=== PATIENT | female | born 2000 | race Caucasian/White ===

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

== ENCOUNTER 2022-04-30 08:34 | Emergency (ER) | payer BC, MEDICAID, SELFPAY ==
--- NOTE | 2022-04-30 08:40 | ED_ITS ---
HPI - Abdominal Pain General: Chief Complaint: Abdominal Pain Stated Complaint: lower abd pain, fever Time Seen by Provider: 04/30/22 08:37 Source: patient Mode of arrival: ambulatory Limitations: no limitations History of Present Illness: Patient is a 22-year-old female presents to ED today with a complaint of lower abdominal pain over the past 3 days. Patient describes her pain as sharp and burning in nature. She is having a little bit of nausea but no episodes of emesis. She is having normal bowel movements. She does not complain of any urinary symptoms such as dysuria, frequency, urgency. She is not having any painful intercourse, vaginal discharge, or vaginal odor. She denies new sexual partners or concern for sexually transmitted infections. She has not been running fevers. Looking at patient's history she does have quite an extensive previous abdominal history. MD elicited complaint: abdominal pain Onset (ago): day(s) Pain Consistency: constant Location: RLQ, LLQ and Suprapubic Severity: moderate Quality: sharp and burning Radiation: none Migration to: no migration Exacerbating factors: nothing Relieving factors: nothing Associated Symptoms: Reports nausea; Denies change in bowel habits, chills, diarrhea, dysuria, fever(s), heartburn, hematuria, hematemesis, syncope and vomiting Related Data: Date of Last Menstrual Period: 08/25/21 Patient : No Review of Systems Const: Denies: fever(s), chills, body aches, fatigue or malaise Card: Denies: chest pain, palpitations, irregular heart rhythm, lightheadedness, syncope or dyspnea on exertion Resp: Denies: dyspnea, productive cough or pain on inspiration GI: Reports: abdominal pain and nausea; Denies: vomiting, hematemesis, heartburn, diarrhea or change in bowel habits : Denies: flank pain, difficulty voiding, dysuria, hematuria, vaginal odor, vaginal bleeding or vaginal discharge Musc: Denies: neck pain, back pain, extremity pain or joint pain Skin/Breast: Denies: rash Neuro: Denies: headache(s) or dizziness PFSH ED PFSH: Medical History Bleeding per rectum Gastric ulcer Gastritis Hematemesis No pertinent family history Social History Smoking and tobacco status: current every day smoker Alcohol intake: never Female Reproductive History: Date of last menstrual period: 08/25/21 Physical Exam Const: COMMON NORMALS: no acute distress, average body habitus, patient oriented x3, no limitations, healthy appearing, alert and well nourished G ENERAL APPEARANCE: cooperative ORIENTATION/CONSCIOUSNESS: Yes awake, Yes oriented to person, Yes oriented to place and Yes oriented to time HENMT: COMMON NORMALS: normocephalic and atraumatic HEAD & SCALP: normal to inspection, normocephalic and atraumatic Neck/C-Spine: COMMON NORMALS: full ROM, no lymphadenopathy, supple and no meningeal signs Chest: COMMONS NORMALS: normal inspection of the chest and normal palpation of entire chest wall Resp: COMMON NORMALS: normal respiratory effort and clear to auscultation bilaterally AUSCULTATION: clear to auscultation bilaterally Cardio: COMMON NORMALS: regular rate and regular rhythm RATE: regular rate RHYTHM: regular rhythm GI: COMMON NORMALS: Normal to inspection, nondistended, normoactive bowel sounds present, Soft to palpation, No hepatosplenomegaly present and no masses INSPECTION: Yes normal to inspection AUSCULTATION: Yes normoactive bowel sounds PALPATION: Yes Soft to palpation, Yes Tenderness to palpation present (GI) (throughout lower abdomen; no tenderness down into pelvis), No Guarding due to palpation present (GI), No Rigid due to palpation and Yes No hepatosplenomegaly present : COMMON NORMALS: Yes no CVA tenderness BLADDER/KIDNEY EXAM: Yes no CVA tenderness Back/Pelvis: COMMON NORMALS: no CVA tenderness and thoracic and lumbar spine normal to inspection Extremity: COMMON NORMALS: normal to inspection GENERAL: Yes normal exam except as noted Neuro: ANTONINO COMA SCALE: document GCS findings [place] coma scale eye opening: Spontaneous Antonino coma scale verbal response: Orientated [place] coma scale motor response: Obey commands [place] coma scale total score: 15 COMMON NORMALS: patient oriented x3, moves all extremities, no focal motor deficits, no sensory deficits noted and gait normal SENSORIUM/ORIENTATION: Yes alert, Yes oriented to person, Yes oriented to place and Yes oriented to time MENINGEAL SIGNS: Yes no meningeal signs Skin: COMMON NORMALS: no rashes or lesions noted GENERAL SKIN EXAM: no rashes or lesions noted Course ED course: Re-assessed patient to alert her on normal lab/UA findings. I explained to her how I have a low suspicion at this time for acute intra abdominal pathology and plan would most likely be for discharge. During my exam patient tells me that her pain seems to be coming back and states it is the worst it has ever been . Significant other in the room states she was up several times last night crying because of discomfort. She is now telling me she ran fevers last night (subjective/omitted during original history). Because of continued/severe pain we will obtain CT imaging at this time. Vital Signs: Vital signs: Vital Signs Temperature 98.3 F 04/30/22 08:52 Pulse Rate 71 04/30/22 08:47 Respiratory Rate 17 04/30/22 09:02 Blood Pressure 127/64 04/30/22 08:47 Pulse Oximetry 100 04/30/22 08:47 Oxygen Delivery Me thod 04/30/22 08:47 MDM - Abdominal Pain Medical Decision Making Patient's vital signs are normal. Lab work is benign. CT imaging ordered due to patient's continued concern and pain. CT scan essentially unremarkable. She has physiologic multifollicular ovaries. They did comment on retrosigmoid constipation. She has a chronic L4-L5 disc protrusion. She states this is not currently bothering her and she is not having any radicular pain currently. No other suggestion for etiology of her lower abdominal pain. As originally stated patient has a longstanding history of abdominal discomforts. She's had 10-12 visits through ED and through general surgery since Feb 2020 for abdominal pains. At this time patient is cleared from an ED standpoint with instructions to follow up with PCP. Spoke about possible GI referral for further evaluation. Will give her nausea meds and small amount of pain meds to use sparingly as they can cause worsening of the constipation that was found on CT today. Patient voiced understanding. Return to ED precautions given. Lab Data 04/30/22 09:02 04/30/22 09:02 Labs/Radiology: Radiology Impressions Abdomen/Pelvis CT 04/30/22 09:57 IMPRESSION: 1. Normal appendix in the RIGHT lower quadrant. No evidence of acute append icitis. 2. Normal physiologic multifollicular ovaries bilaterally. No free fluid in th e cul-de-sac or pelvis. 3. Rectosigmoid constipation. 4. Mild diffuse fatty infiltration liver. 5. Normal renal parenchymal enhancement. No hydronephrosis in either kidney. 6. Prominent central disc protrusion L4-L5 slightly progressed compared to August 26, 2021. This results in mild central canal stenosis with impingement traversing L5 nerve roots bilaterally. This can be followed up with lumbar spine MRI. 7. Mild disc bulging L3-L4 and L5-S1 similar to previous. Notified IRA Izaguirre at 04/30/2022 10:40 AM. 0 Laboratory Results WBC 5.5 10^3/uL (4.5-13.0) 04/30/22 09:02 RBC 5.13 10^6/uL (4.1-5.3) 04/30/22 09: Hgb 14.0 g/dL (11.5-15.3) 04/30/22 09: Hct 45.2 % (37.0-47.0) 04/30/22 09: MCV 88.1 fl (81-99) 04/30/22 09: MCH 27.3 pg (28.0-34.0) L 04/30/22 09: MCHC 31.0 g/dL (30.0-36.0) 04/30/22 09: RDW 13.1 % (12.1-15.1) 04/30/22 09:02 Plt Count 161 10^3/cmm (130-400) 04/30/22 09:02 MPV 12.4 fL (7.4-10.4) H 04/30/22 09:02 Neut % (Auto) 46.5 % 04/30/22 09:02 Lymph % (Auto) 41.2 % 04/30/22 09:02 [place] % (Auto) 7.7 % 04/30/22 09:02 Eos % (Auto) 4.0 % 04/30/22 09:02 Baso % (Auto) 0.4 % 04/30/22 09:02 Neut # (Auto) 2.56 10^3/uL (1.8-8.0) 04/30/22 09:02 Lymph # (Auto) 2.3 10^3/uL (1.5-6.5) 04/30/22 09:02 [place] # (Auto) 0.4 10^3/uL (0.2-0.9) 04/30/22 09:02 Eos # (Auto) 0.2 10^3/uL (0.0-0.8) 04/30/22 09:02 Baso # (Auto) 0.0 10^3/uL (0.0-0.1) 04/30/22 09:02 Nucleated RBC % (auto) 0 % 04/30/22 09:02 Nucleated RBCs # 0.0 /100WBC 04/30/22 09:02 Sodium 139 mmol/L (136-145) 04/30/22 09:02 Potassium 4.1 mmol/L (3.5-5.1) 04/30/22 09:02 Chloride 104 mmol/L (98-107) 04/30/22 09:02 Carbon Dioxide 27 mmol/L (22-29) 04/30/22 09:02 Anion Gap 12.1 (5-19) 04/30/22 09:02 BUN 10 mg/dL (6-20) 04/30/22 09:02 Creatinine 0.6 mg/dL (0.5-0.9) 04/30/22 09:02 GFR Calculation 127.5 mL/min (90-130) 04/30/22 09:02 Glucose 93 mg/dL (65-115) 04/30/22 09:02 Calculated Osmolality 287 mOsm/kg (285-295) 04/30/22 09:02 Calcium 9.0 mg/dL (8.5-10.5) 04/30/22 09:02 Total Bilirubin 0.6 mg/dL (0.15-1.2) 04/30/22 09:02 AST 22 U/L (0-32) 04/30/22 09:02 ALT 24 U/L (0-33) 04/30/22 09:02 Alkaline Phosphatase 63 U/L (35-105) 04/30/22 09:02 Total Protein 7.2 g/dL (6.6-8.7) 04/30/22 09:02 Albumin 4.3 g/dL (3.5-5.2) 04/30/22 09:02 Globulin 2.9 g/dL (1.3-4.6) 04/30/22 09:02 HCG, Qual Negative (Negative) 04/30/22 09:02 Urine Color Yellow (Yellow) 01/26/23 08:56 Urine Appearance Clear (CLEAR) 04/30/22 08:56 Urine pH 7 (5-7) 04/30/22 08:56 Ur Specific [place] 1.015 (1.005-1.030) 04/30/22 08:56 Urine Protein Neg (Negative) 04/30/22 08:56 Urine Glucose (UA) Norm (Normal) 04/30/22 08:56 Urine Ketones Negative (Negative) 04/30/22 08:56 Urine Blood Neg (Negative) 04/30/22 08:56 Urine Nitrate Negative (Negative) 04/30/22 08:56 Urine Bilirubin Neg (Negative) 04/30/22 08:56 Urine Urobilinogen 1 mg/dL (Negative) H 04/30/22 08:56 Ur Leukocyte Esterase Trace (Negative) H 04/30/22 08:56 Urine RBC 0-4 /hpf (0-2) H 04/30/22 08:56 Urine WBC 0-4 /hpf (0-5) H 04/30/22 08:56 Ur Squamous Epith Cells 25-40 /hpf (0-5) H 04/30/22 08:56 Amorphous Sediment Not Reportable 04/30/22 08:56 Urine Bacteria 1+ /hpf (NONE) H 04/30/22 08:56 Discharge Plan Discharge Patient Disposition: Home Clinical Impression: Abdominal pain Condition: Stable Prescriptions: New tramadol 50 mg tablet 50 mg PO Q6H PRN (Reason: pain) Qty: 10 0RF Continued ondansetron 4 mg tablet,disintegrating 4 mg PO Q8H PRN (Reason: nausea and vomiting) Qty: 10 0RF Discontinued hydrocodone-acetaminophen 5-325 mg tablet 1 tab PO Q6H PRN (Reason: pain) Qty: 8 0RF No Action fluticasone propionate 50 mcg/actuation spray,suspension 2 spray intranasal DAILY Qty: 16 0RF Rx Instructions: administer into each nostril levocetirizine [Allergy Relief (levocetirizin)] 5 mg tablet 5 mg PO DAILY Qty: 30 1RF Xulane 150-35 mcg/24 hr Patch Weekly 1 patch TRANSDERMAL DIRECTED methocarbamol 750 mg tablet 750 mg PO Q6H PRN (Reason: spasms) Qty: 20 0RF Naprosyn 500 mg tablet 500 mg PO BID PRN (Reason: pain) Qty: 20 0RF Celebrex 100 mg capsule 100 mg PO BID PRN (Reason: pain) Qty: 20 0RF cyclobenzaprine 7.5 mg tablet 7.5 mg PO BID PRN (Reason: muscle spasm) Qty: 15 0RF Discharge Orders: Discharge ED (Routine); Ordered 04/30/22 Ordered By: Magalys Troy Referrals: Ramona Booker FNP [Primary Care Provider] - Patient Instructions: Abdominal Pain (ED), Opioid Safety, Pain Management Coding Level of Care Code ED Drill Runner for Chg Fwd Exam Comprehensive
[2022-04-30 08:42] VITALS: BMI 20.9
[2022-04-30 08:47] VITALS: BP 127/64; PULSE 71; RESP 16; O2SAT 100
[2022-04-30 08:52] VITALS: TEMP 36.8
[2022-04-30 09:02] VITALS: RESP 17
[2022-04-30] MEDS: morphine 4 mg/mL SDV 1 mL IVP (09:02)
[2022-04-30] MEDS: ondansetron 2 mg/ML SDV 2 mL 4 MG IVP (09:02)
[2022-04-30 09:04] LABS: Add Urine Microscopic? YES; Bilirubin Urine Neg (Negative); Blood Urine Neg (Negative); Glucose Urine UA Norm (Normal); Ketones Urine Negative (Negative); Leukocyte Esterase Urine Trace (Negative); Nitrate Urine Negative (Negative); Protein Urine Neg (Negative); Specific Gravity, Urine 1.015 (1.005-1.030); Urine Appearance Clear (CLEAR); Urine Color Yellow (Yellow); Urobilinogen Urine 1 mg/dL (Negative); pH Urine 7 (5-7)
[2022-04-30 09:18] LABS: Basophils % 0.4 %; Eosinophils # 0.2 10^3/uL (0.0-0.8); Hematocrit 45.2 % (37.0-47.0); Lymphocytes # 2.3 10^3/uL (1.5-6.5); Lymphocytes % 41.2 %; Mean Corpuscular Hemoglobin 27.3 pg (28.0-34.0); Mean Corpuscular Volume 88.1 fl (81-99); Mean Platelet Volume 12.4 fL (7.4-10.4); Monocytes # 0.4 10^3/uL (0.2-0.9); Monocytes % 7.7 %; Neutrophils # 2.56 10^3/uL (1.8-8.0); Neutrophils % 46.5 %; Nucleated Red Blood Cells % 0 %; Platelet Count 161 10^3/cmm (130-400); Red Blood Count 5.13 10^6/uL (4.1-5.3); Red Cell Distribution Width 13.1 % (12.1-15.1); White Blood Count 5.5 10^3/uL (4.5-13.0)
[2022-04-30 09:20] LABS: Bacteria Urine 1+ /hpf; RBC Urine 0-4 /hpf (0-2); Squamous Epithelial Cell Urine 25-40 /hpf (0-5); WBC Urine 0-4 /hpf (0-5)
[2022-04-30 09:31] LABS: Alanine Aminotransferase 24 U/L (0-33); Albumin Level 4.3 g/dL (3.5-5.2); Alkaline Phosphatase 63 U/L (35-105); Anion Gap 12.1 (5-19); Aspartate Amino Transferase 22 U/L (0-32); Blood Urea Nitrogen 10 mg/dL (6-20); Carbon Dioxide 27 mmol/L (22-29); Chloride 104 mmol/L (98-107); Globulin 2.9 g/dL (1.3-4.6); Glomerular Filtration Rate 127.5 mL/min (90-130); Glucose 93 mg/dL (65-115); Osmolality Calculated 287 mOsm/kg (285-295); Potassium 4.1 mmol/L (3.5-5.1); Sodium 139 mmol/L (136-145); Total Bilirubin 0.6 mg/dL (0.15-1.2); Total Protein 7.2 g/dL (6.6-8.7)
[2022-04-30 09:36] LABS: HCG, Serum Qual Negative (Negative)
--- NOTE | 2022-04-30 09:57 | CT_ITS ---
WS: [id number] CT ABDOMEN PELVIS TECHNIQUE: Contrast-enhanced CT of the abdomen and pelvis with coronal and sagittal reformatted image s. CLINICAL INFORMATION: lower abdominal pain, sub fevers COMPARISON: CT August 26, 2021 DLP: 360.[address] scans at [facility] use at least one of these dose optimization techniques: automated e xposure control; mA and/or kV adjustment per patient size (includes targeted exams where dose is matc hed to clinical indication); or iterative reconstruction. FINDINGS: Mild diffuse fatty infiltration liver. Normal portal vein and splenic vein. Normal spleen. Adrenal gl ands are normal. Normal renal parenchymal enhancement. No hydronephrosis. Lung bases are well aerated . Normal gallbladder. Normal portal vein and splenic vein. Normal GE junction. Adrenal glands are nor mal. No hydronephrosis in either kidney. Normal renal parenchymal enhancement. Normal caliber abdomin al aorta. Multifollicular ovaries bilaterally. Tortuous sigmoid colon. Rectosigmoid constipation with distentio n of the rectum. Normal appendix in the RIGHT lower quadrant. Disc bulging L4-L5 with a small central disc protrusion. This is similar in appearance to August 26, 2021 and slightly progressed. This results in mild central canal stenosis with impingement on traversing L5 nerve roots bilaterally. This can b e followed up with MRI on an elective basis. Tiny fat-containing umbilical hernia. CT/CT abdomen pelvis w con* [id number] IMPRESSION: 1. Normal appendix in the RIGHT lower quadrant. No evidence of acute appendici tis. 2. Normal physiologic multifollicular ovaries bilaterally. No free fluid in t he cul-de-sac or pelvis. 3. Rectosigmoid constipation. 4. Mild diffuse fatty infiltration liver. 5. Normal renal parenchymal enhancement. No hydronephrosis in either kidney. 6. Prominent central disc protrusion L4-L5 slightly progressed compared to August 26, 2021. This results in mild central canal stenosis with impingement jules ing L5 nerve roots bilaterally. This can be followed up with lumbar spine MRI. 7. Mild disc bulging L3-L4 and L5-S1 similar to previous. Notified IRA Izaguirre at 04/30/2022 10:40 AM. 0
[2022-04-30] MEDS: iohexol 350 mg/mL 500 mL Btl (per mL) IV (10:15)
[2022-04-30] MEDS: ketorolac 30 mg/mL INJ IVP (10:18)
[2022-04-30] MEDS: metoclopramide 5 mg/mL SDV 2 mL 10 MG IVP (10:29)
[2022-04-30 11:06] VITALS: PULSE 73; RESP 16; O2SAT 98
== END 2022-04-30 11:07 | disposition home or self-care (01) ==
PROVIDERS: Emergency Provider Physician Assistant; PCP Registered Nurse
DX: R10.30 Lower abdominal pain, unspecified (principal); F17.210 Nicotine dependence, cigarettes, uncomplicated
CPT/HCPCS: 74177; 80053; 81001; 84703; 85025; 96374; 96375; 99285; J1885; J2270; J2405; J2765; Q9967

== ENCOUNTER → 2022-06-15 10:23 | Outpatient (BNVA) | payer BC, MEDICAID, SELFPAY | PROVIDERS: PCP Registered Nurse; Visit Provider Nurse Practitioner Women's Health | DX: N92.6 Irregular menstruation, unspecified (principal) | CPT/HCPCS: 76830 ==

== ENCOUNTER 2022-06-25 08:47 | Emergency (ER) | payer BC, MEDICAID, SELFPAY ==
[2022-06-25 09:06] VITALS: BP 118/66; PULSE 67; RESP 16; O2SAT 98; BMI 22.2
--- NOTE | 2022-06-25 09:23 | CTR_ITS ---
PROCEDURE INFORMATION: Exam: CT Head Without Contrast Exam date and time: 06/25/2022 10:28 AM Age: 22 years old Clinical indication: Injury or trauma; Fall; Blunt trauma (contusions or hematomas); Additional info: Fall from standing, hit back of head, +loc. Syncope, fell hitting head on floor x 1 day ago. PT states she was unconsious for 3 minutes. PT C/O weakness, light sensitivity today, and headache TECHNIQUE: Imaging protocol: Computed tomography of the head without contrast. Radiation optimization: All CT scans at this facility use at least one of these dose optimization techniques: automated exposure control; mA and/or kV adjustment per patient size (includes targeted exams where dose is matched to clinical indication); or iterative reconstruction. REPORTING DATA: Count of CT and Cardiac NM exams in prior 12 months: This patient has received 3 known CTs and 0 known cardiac nuclear medicine studies in the 12 months prior to the current study. COMPARISON: CT head wo con* [id number] 05/31/2020 1:44 AM RADIATION DOSE METRICS: Total DLP (mGy-cm): 145.3 FINDINGS: Brain: The brain is unremarkable. There is no mass effect or significant white matter disease. There is no acute intracranial hemorrhage. Cerebral ventricles: There is no significant ventricular dilation. The basal cisterns are unremarkable. Paranasal sinuses: The paranasal sinuses are clear. Mastoid air cells: The mastoid air cells are clear. Bones/joints: The calvarium is intact. Soft tissues: The visible extracranial soft tissues are unremarkable. CT/CT head wo con* [id number] IMPRESSION: No acute intracranial abnormality.
--- NOTE | 2022-06-25 09:23 | CTR_ITS ---
PROCEDURE INFORMATION: Exam: CT Cervical Spine Without Contrast Exam date and time: 06/25/2022 10:28 AM Age: 22 years old Clinical indication: Injury or trauma; Fall; Blunt trauma; Additional info: Neck pain after fall and hitting head, +loc TECHNIQUE: Imaging protocol: Computed tomography of the cervical spine without contrast. Radiation optimization: All CT scans at this facility use at least one of these dose optimization techniques: automated exposure control; mA and/or kV adjustment per patient size (includes targeted exams where dose is matched to clinical indication); or iterative reconstruction. REPORTING DATA: Count of CT and Cardiac NM exams in prior 12 months: This patient has received 3 known CTs and 0 known cardiac nuclear medicine studies in the 12 months prior to the current study. COMPARISON: CT head wo con* [id number] 05/31/2020 1:44 AM RADIATION DOSE METRICS: Total DLP (mGy-cm): 145.3 FINDINGS: Bones/joints: Spinal alignment is normal. Vertebral body height is maintained. No acute fracture. No spinal canal stenosis. Lungs: Lung apices are clear. Soft tissues: Soft tissues in the neck and thoracic inlet are unremarkable. CT/CT cervical spin wo con* [id number] IMPRESSION: No acute fracture.
--- NOTE | 2022-06-25 09:27 | ED_ITS ---
HPI - Head Injury General: Chief complaint: Head Injury Stated complaint: AMS/concussion Time Seen by Provider: 06/25/22 09:06 History of Present Illness: Patient is a 22-year-old female comes to the ED with a head injury. Head injury occurred yesterday. She fell and hit back of her head on the ground yesterday. endorses positive loss of consciousness. Patient says she was out for approximately 2 to 3 minutes. She went to [facility] yesterday and was diagnosed with a concussion. She is currently having symptoms of brain fog, dizziness, confusion, nausea and a headache located in the back of head. Associated symptoms: Reports confusion and nausea; Deny neck pain or vomiting Review of Systems Const: Denies: fever(s), chills or fatigue Eyes: Denies: change in vision or eye discomfort ENMT: Denies: throat pain, odynophagia, nasal discharge or nasal congestion Card: Denies: chest pain, palpitations, edema, swelling of feet/ankles, dyspnea on exertion or orthopnea Resp: Denies: dyspnea, productive cough or non-productive cough GI: Reports: nausea; Denies: abdominal pain, vomiting, diarrhea, constipation or hematochezia : Denies: flank pain, dysuria or hematuria Musc: Denies: neck pain, back pain or extremity swelling Skin/Breast: Denies: rash or new lesions Neuro: Reports: headache(s), dizziness, confusion and other (Brain fog); Denies: numbness in extremities or weakness in extremities PFS ED PFSH: Medical History Bleeding per rectum Gastric ulcer Gastritis Hematemesis No pertinent family history Family History Grandmother Breast cancer Grandmother Breast cancer Grandmother Hypertension maternal and paternal grandparents Denies family history of Diabetes Stroke Social History Smoking and tobacco status: current every day smoker Alcohol intake: never Physical Exam Const: COMMON NORMALS: no acute distress, patient oriented x3 and alert HENMT: COMMON NORMALS: normocephalic HEAD & SCALP: normocephalic MOUTH: Normal oral and palatal mucosa present THROAT: posterior oropharynx normal and uvula midline Eye: COMMON NORMALS: Equal, round and reactive pupils present and EOMs intact bilaterally GENERAL EYE: appearance normal, both eyes and all related structures PUPIL: Yes Equal, round and reactive pupils present Neck/C-Spine: COMMON NORMALS: supple GENERAL: Yes normal visual inspection CERVICAL SPINE: Yes cervical ROM normal, Yes Cervical spine tenderness C5 and C6 and Yes Paracervical muscle tenderness bilateral Lymph: LYMPHATIC: no lymphadenopathy noted Resp: COMMON NORMALS: normal respiratory effort, No retractions, No use of accessory muscles and clear to auscultation bilaterally AUSCULTATION: clear to auscultation bilaterally Cardio: COMMON NORMALS: regular rate, regular rhythm, S1 normal heart sound present, S2 normal heart sound present, No gallops present (Cardio), No clicks present (Cardio), No murmurs present (Cardio) and Peripheral pulses 2+ throughout RATE: regular rate RHYTHM: regular rhythm HEART SOUNDS: S1 normal heart sound present and S2 normal heart sound present PERIPHERAL PULSES: Peripheral pulses 2+ throughout GI: COMMON NORMALS: Normal to inspection, nondistended, normoactive bowel sounds present, Soft to palpation, non-tender and no masses PALPATION: Yes Soft to palpation : COMMON NORMALS: Yes no CVA tenderness BLADDER/KIDNEY EXAM: Yes no CVA tenderness Back/Pelvis: COMMON NORMALS: no CVA tenderness Extremity: GENERAL: Yes normal exam except as noted Neuro: COMMON NORMALS: patient oriented x3, CN's II-XII intact bilaterally, moves all extremities, no focal motor deficits and no sensory deficits noted SENSORIUM/ORIENTATION: Yes alert SENSORY EXAM: Yes extremities (intact) MO TOR EXAM: 5/5 motor strength present throughout Skin: COMMON NORMALS: no rashes or lesions noted GENERAL SKIN EXAM: no rashes or lesions noted and dry skin Course Vital Signs: Vital signs: Vital Signs Pulse Rate 60 06/25/22 11:11 Respiratory Rate 16 06/25/22 09:06 Blood Pressure 102/54 06/25/22 11:11 Pulse Oximetry 98 06/25/22 11:11 Oxygen Delivery Md thod 06/25/22 10:01 [facility] - Head Injury Medcial Decision Making Patient is a 22-year-old female comes to the ED with a head injury. Head injury occurred yesterday. She fell and hit back of her head on the ground yesterday. endorses positive loss of consciousness. Patient says she was out for approximately 2 to 3 minutes. She went to [facility] yesterday and was diagnosed with a concussion. She is currently having symptoms of brain fog, dizziness, confusion, nausea and a headache located in the back of head. Vitals are stable and patient appears nontoxic and in no acute distress. Neuro exam shows no deficits. Head CT and cervical spine CT showed no acute findings. Patient was diagnosed with a concussion and was stable for discharge home. She was sent home with a prescription for Zofran to help with the nausea. Told to follow-up with her PCP in the next week for reevaluation and to monitor concussion symptoms. Patient understood and agreed with plan. Lab Data Radiology Impressions Cervical Spine CT 06/25/22 09:23 IMPRESSION: No acute fracture. Head CT 06/25/22 09:23 IMPRESSION: No acute intracranial abnormality. Discharge Plan Discharge Patient Disposition: Home Clinical Impression: Concussion Qualifiers: Encounter type: initial encounter Loss of consciousness presence/duration: with LOC of 30 min or less Qualified Code(s): S06.0X1A - Concussion with loss of consciousness of 30 minutes or less, initial encounter Condition: Stable Prescriptions: New ondansetron 4 mg tablet,disintegrating 4 mg PO Q8H PRN (Reason: nausea and vomiting) Qty: 15 0RF Discharge Orders: Discharge ED (Routine); Ordered 06/25/22 Ordered By: Basil Fields Referrals: Ramona Booker FNP [Primary Care Provider] - Discharge Diet: Regular Discharge Activity: Increase activity as tolerated Patient Instructions: Concussion (ED) Activity Restrictions/Additional Instructions: Follow-up with primary care physician within the next 5 to 7 days for reevaluation and to monitor concussion symptoms. Take medications as prescribed. You can take [id number] Tylenol or ibuprofen per bottle instruction for headaches. Return to the ER or your medical provider if condition worsens. Please read and understand discharge instructions. Thank you for choosing [facility] for your healthcare needs today. Please realize this is an emergency room and that we are providing you with a medical screening exam and this may not be complete and all inclusive of all the testing and or work up that you may need to determine your ailment or severity of your illness. It is very important that you follow up as instructed or that you return to the Emergency Department should you have concerns or if your condition changes or worsens in any way. Coding Level of Care Code ED Dumpling Machine Operator for Kirsten Melendez
[2022-06-25] MEDS: ondansetron 4 MG Tablet PO (09:34)
--- NOTE | 2022-06-25 09:34 | PC.PHAR ---
pt states takes no rx or otc meds
[2022-06-25 09:38] VITALS: BP 118/66; PULSE 64; O2SAT 95
[2022-06-25] MEDS: ketorolac 60 mg/2 mL INJ IM (09:55)
[2022-06-25 10:01] VITALS: BP 106/68; PULSE 62; O2SAT 98
[2022-06-25 11:11] VITALS: BP 102/54; PULSE 60; O2SAT 98
== END 2022-06-25 11:10 | disposition home or self-care (01) ==
PROVIDERS: Emergency Provider Physician Assistant; PCP Registered Nurse
DX: S06.0X1A Concussion with loss of consciousness of 30 minutes or less, initial encounter (principal); F17.210 Nicotine dependence, cigarettes, uncomplicated; W19.XXXA Unspecified fall, initial encounter
CPT/HCPCS: 70450; 72125; 96372; 99284; J1885; Q0162

== ENCOUNTER 2022-08-25 06:20 | Emergency (ER) | payer BC, MEDICAID, SELFPAY ==
--- NOTE | 2022-08-25 06:27 | ECG_ITS ---
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 Measurements Intervals [place] Rate: 74 P: 44 MA: 143 QRS: 87 QRSD: 86 T: 72 QT: 365 QTc: 407 Interpretive Statements SINUS RHYTHM WITH SINUS ARRHYTHMIA Compared to ECG 04/01/2021 02:02:31 No significant changes Electronically Signed On 08-26-2022 1:13:52 CDT by April Lozada M.D. [id number]
[2022-08-25 06:36] VITALS: BMI 19.5
[2022-08-25 06:40] VITALS: BP 115/73; PULSE 65; RESP 17; TEMP 36.6; O2SAT 99
[2022-08-25] MEDS: sodium chloride 0.9% 1,000 ML 999 ML IV (06:43)
--- NOTE | 2022-08-25 06:48 | W.ED.ABDPA2 ---
HPI - Abdominal Pain General: Chief Complaint: Abdominal Pain Stated Complaint: Lower Abd pain, Passing blood Time Seen by Provider: 08/25/22 06:26 Source: patient Mode of arrival: ambulatory History of Present Illness: 22-year-old female presents emergency room with complaint of pelvic discomfort. Patient states she felt a popping sensation in the left pelvic region and immediately had vaginal bleeding and ceased shortly after that began she just finished her menstrual period now. He has a history of chronic abdominal pain and ovarian cyst. She previously was on contraception for it but she felt that actually made it worse. She also reports a history of polycystic ovarian syndrome. She denies any fever sweats or chills. MD elicited complaint: abdominal pain Onset (ago): minute(s) Pain Consistency: constant Location: Diffuse Quality: cramping Exacerbating factors: nothing Relieving factors: nothing Associated Symptoms: Reports nausea; Denies anorexia, belching, bloating, change in bowel habits, change in stool character, chills, coffee ground emesis, constipation, GI cramping, diarrhea, dyspepsia, dysuria, excessive flatus, fever(s), heartburn, hematochezia, hematuria, hematemesis, fecal incontinence, loose stools, melena, poor appetite, syncope and vomiting Related Data: Date of Last Menstrual Period: 08/12/22 Review of Systems Const: Denies: fever(s) or chills ENMT: Denies: throat pain, ear or mastoid pain, nasal discharge or nasal congestion Card: Denies: chest pain, palpitations or syncope Resp: Denies: dyspnea, productive cough or non-productive cough GI: Reports: abdominal pain and nausea; Denies: vomiting, hematemesis, coffee ground emesis, heartburn, diarrhea, constipation, bloating, GI cramping, belching, excessive flatus, fecal incontinence, change in bowel habits, change in stool character, hematochezia or melena : Denies: dysuria, urinary frequency, urinary urgency or hematuria Skin/Breast: Denies: rash or pruritus PFSH ED PFSH: Medical History Bleeding per rectum Gastric ulcer Gastritis Hematemesis No pertinent family history Family History Grandmother Breast cancer Grandmother Breast cancer Grandmother Hypertension maternal and paternal grandparents Denies family history of Diabetes Stroke Social History Smoking and tobacco status: current every day smoker Alcohol intake: never Substance/Drug Use: never Female Reproductive History: Date of last menstrual period: 08/12/22 Physical Exam Const: GENERAL APPEARANCE: cooperative and comfortable ORIENTATION/CONSCIOUSNESS: Yes awake, Yes oriented to person, Yes oriented to place and Yes oriented to time HENMT: COMMON NORMALS: normocephalic, atraumatic and hearing grossly normal bilaterally HEAD & SCALP: normocephalic and atraumatic Resp: COMMON NORMALS: normal respiratory effort, No retractions, No use of accessory muscles and clear to auscultation bilaterally AUSCULTATION: clear to auscultation bilaterally Cardio: COMMON NORMALS: regular rate, regular rhythm and No murmurs present (Cardio) RATE: regular rate RHYTHM: regular rhythm GI: PALPATION: Yes Tenderness to palpation present (GI) (diffuse) : COMMON NORMALS: Yes no CVA tenderness BLADDER/KIDNEY EXAM: Yes no CVA tenderness Back/Pelvis: COMMON NORMALS: no CVA tenderness Extremity: COMMON NORMALS: normal to inspection, capillary refill normal, no clubbing, cyanosis or edema, no calf tenderness and no pedal edema Neuro: SENSORIUM/ORIENTATION: Yes oriented to person, Yes oriented to place and Yes oriented to time Skin: COMMON NORMALS: no rashes or lesions noted GENERAL SKIN EXAM: no rashes or lesions noted Course Vital Signs: Vital signs: Vital Signs Temperature 97.9 F 08/25/22 06:40 Pulse Rate 62 08/25/22 07:23 Respiratory Rate 18 08/25/22 07:23 Blood Pressure 94/72 08/25/22 07:23 Pulse Oximetry 100 08/25/22 07:23 Oxygen Delivery Me thod Room Air 08/25/22 07:23 MDM - Abdominal Pain Medical Decision Making Labs and imaging reviewed ultrasound negative symptoms have resolved. Suspect may be related to her either uterine cramping or her polycystic ovarian disease there is no evidence of free fluid in the pelvis. She had multiple episodes of this in the past discharge home with diclofenac to use as needed follow-up with her primary care doctor or welding instructor within the next 1 to 2 weeks. Return if she has worsening or changes symptoms. Medical Records I reviewed the patient's medical records. Lab Data I reviewed the patient's lab results. 08/25/22 06:45 08/25/22 06:45 Labs/Radiology: Radiology Impressions Transvaginal US 08/25/22 06:59 IMPRESSION: 1. Multi-follicular ovaries bilaterally. Consider PCOS in appropriate clinical setting. 2. No other suspicious findings. 3. Normal uterus and endometrium.. 4. No adnexal masses. Slight Laboratory Results WBC 6.1 10^3/uL (4.5-13.0) 08/25/22 06:45 RBC 5.05 10^6/uL (4.1-5.3) 08/25/22 06:45 Hgb 14.1 g/dL (11.5-15.3) 08/25/22 06:45 Hct 45.0 % (37.0-47.0) 08/25/22 06:45 MCV 89.1 fl (81-99) 08/25/22 06:45 MCH 27.9 pg (28.0-34.0) L 08/25/22 06:45 MCHC 31.3 g/dL (30.0-36.0) 08/25/22 06:45 RDW 13.5 % (12.1-15.1) 08/25/22 06:45 Plt Count 145 10^3/cmm (130-400) 08/25/22 06:45 MPV 12.3 fL (7.4-10.4) H 08/25/22 06:45 Neut % (Auto) 47.1 % 08/25/22 06:45 Lymph % (Auto) 40.0 % 08/25/22 06:45 [place] % (Auto) 10.6 % 08/25/22 06:45 Eos % (Auto) 1.5 % 08/25/22 06:45 Baso % (Auto) 0.5 % 08/25/22 06:45 Neut # (Auto) 2.88 10^3/uL (1.8-8.0) 08/25/22 06:45 Lymph # (Auto) 2.5 10^3/uL (1.5-6.5) 08/25/22 06:45 [place] # (Auto) 0.7 10^3/uL (0.2-0.9) 08/25/22 06:45 Eos # (Auto) 0.1 10^3/uL (0.0-0.8) 08/25/22 06:45 Baso # (Auto) 0.0 10^3/uL (0.0-0.1) 08/25/22 06:45 Nucleated RBC % (auto) 0 % 08/25/22 06:45 Nucleated RBCs # 0.0 /100WBC 08/25/22 06:45 Sodium 140 mmol/L (136-145) 08/25/22 06:45 Potassium 3.9 mmol/L (3.5-5.1) 08/25/22 06:45 Chloride 105 mmol/L (98-107) 08/25/22 06:45 Carbon Dioxide 26 mmol/L (22-29) 08/25/22 06:45 Anion Gap 12.9 (5-19) 08/25/22 06:45 BUN 13 mg/dL (6-20) 08/25/22 06:45 Creatinine 0.7 mg/dL (0.5-0.9) 08/25/22 06:45 GFR Calculation 106.7 mL/min (90-130) 08/25/22 06:45 Glucose 87 mg/dL (65-115) 08/25/22 06:45 Calculated Osmolality 289 mOsm/kg (285-295) 08/25/22 06:45 Calcium 9.0 mg/dL (8.5-10.5) 08/25/22 06:45 Total Bilirubin 0.7 mg/dL (0.15-1.2) 08/25/22 06:45 AST 15 U/L (0-32) 08/25/22 06:45 ALT 13 U/L (0-33) 08/25/22 06:45 Alkaline Phosphatase 58 U/L (35-105) 08/25/22 06:45 Total Protein 6.7 g/dL (6.6-8.7) 08/25/22 06:45 Albumin 4.2 g/dL (3.5-5.2) 08/25/22 06:45 Globulin 2.5 g/dL (1.3-4.6) 08/25/22 06:45 Lipase 78 U/L (13-60) H 08/25/22 06:45 HCG, Qual Negative (Negative) 08/25/22 06:45 Urine Color Yellow (Yellow) 08/25/22 06:52 Urine Appearance Clear (CLEAR) 08/25/22 06:52 Urine pH 6 (5-7) 08/25/22 06:52 Ur Specific [place] 1.020 (1.005-1.030) 08/25/22 06:52 Urine Protein Neg (Negative) 08/25/22 06:52 Urine Glucose (UA) Norm (Normal) 08/25/22 06:52 Urine Ketones Negative (Negative) 08/25/22 06:52 Urine Blood Neg (Negative) 08/25/22 06:52 Urine Nitrate Negative (Negative) 08/25/22 06:52 Urine Bilirubin Neg (Negative) 08/25/22 06:52 Urine Urobilinogen 4 mg/dL (Negative) H 08/25/22 06:52 Ur Leukocyte Esterase Negative (Negative) 08/25/22 06:52 Discharge Plan Discharge Patient Disposition: Home Clinical Impression: PCOS (polycystic ovarian syndrome), Abdominal cramping, Irregular periods Condition: Stable Prescriptions: New diclofenac sodium 75 mg tablet,delayed release (DR/EC) 75 mg PO Q12H PRN (Reason: pain) Qty: 20 0RF No Action ondansetron 4 mg tablet,disintegrating 4 mg PO Q8H PRN (Reason: nausea and vomiting) Qty: 15 0RF Discharge Orders: Discharge ED (Routine); Ordered 08/25/22 Ordered By: Eloy Tamayo Discharge Diet: Usual diet Discharge Activity: Increase activity as tolerated Patient Instructions: Pelvic Pain (ED), Opioid Safety, Pain Management Coding Level of Care Code ED [employer] Professor for Kirsten Melendez
[2022-08-25 06:50] LABS: Basophils % 0.5 %; Eosinophils # 0.1 10^3/uL (0.0-0.8); Eosinophils % 1.5 %; Hemoglobin 14.1 g/dL (11.5-15.3); Lymphocytes # 2.5 10^3/uL (1.5-6.5); Mean Corpuscular HGB Conc 31.3 g/dL (30.0-36.0); Mean Corpuscular Hemoglobin 27.9 pg (28.0-34.0); Mean Corpuscular Volume 89.1 fl (81-99); Mean Platelet Volume 12.3 fL (7.4-10.4); Monocytes # 0.7 10^3/uL (0.2-0.9); Monocytes % 10.6 %; Neutrophils # 2.88 10^3/uL (1.8-8.0); Neutrophils % 47.1 %; Nucleated Red Blood Cells % 0 %; Platelet Count 145 10^3/cmm (130-400); Red Blood Count 5.05 10^6/uL (4.1-5.3); Red Cell Distribution Width 13.5 % (12.1-15.1); White Blood Count 6.1 10^3/uL (4.5-13.0)
[2022-08-25 06:59] LABS: Add Urine Microscopic? NO; Charge for UA Resulting for Rev
--- NOTE | 2022-08-25 06:59 | US_ITS ---
WS: [id number] ULTRASOUND PELVIS TECHNIQUE: Transvaginal. CLINICAL INFORMATION: pelvic pain LMP: August 15, 2022 : No. COMPARISON: June 15, 2022 FINDINGS: Uterus Orientation: Anteverted. Size: 7.9 x 3.0 x 3.9 cm Masses: None. Cervix: Normal. Endometrium: Normal. Endometrium thickness: 3.8 mm. Adnexa: Normal. Right ovary size: 4.2 x 4.1 x 2.3 cm Left ovary size: 3.5 x 2.8 x 2.9 cm Free fluid: None. Other findings: None. US/US transvaginal [id number] IMPRESSION: 1. Multi-follicular ovaries bilaterally. Consider PCOS in appropriate clinical setting. 2. No other suspicious findings. 3. Normal uterus and endometrium.. 4. No adnexal masses. Slight
[2022-08-25 07:06] LABS: Alanine Aminotransferase 13 U/L (0-33); Albumin Level 4.2 g/dL (3.5-5.2); Alkaline Phosphatase 58 U/L (35-105); Anion Gap 12.9 (5-19); Aspartate Amino Transferase 15 U/L (0-32); Blood Urea Nitrogen 13 mg/dL (6-20); Carbon Dioxide 26 mmol/L (22-29); Chloride 105 mmol/L (98-107); Globulin 2.5 g/dL (1.3-4.6); Glomerular Filtration Rate 106.7 mL/min (90-130); Glucose 87 mg/dL (65-115); Lipase 78 U/L (13-60); Osmolality Calculated 289 mOsm/kg (285-295); Potassium 3.9 mmol/L (3.5-5.1); Sodium 140 mmol/L (136-145); Total Bilirubin 0.7 mg/dL (0.15-1.2); Total Protein 6.7 g/dL (6.6-8.7)
[2022-08-25 07:08] LABS: HCG, Serum Qual Negative (Negative)
[2022-08-25 07:13] LABS: Bilirubin Urine Neg (Negative); Blood Urine Neg (Negative); Glucose Urine UA Norm (Normal); Ketones Urine Negative (Negative); Leukocyte Esterase Urine Negative (Negative); Nitrate Urine Negative (Negative); Protein Urine Neg (Negative); Urine Appearance Clear (CLEAR); Urine Color Yellow (Yellow); Urobilinogen Urine 4 mg/dL (Negative); pH Urine 6 (5-7)
[2022-08-25] MEDS: ketorolac 30 mg/mL INJ IVP (07:21)
[2022-08-25 07:23] VITALS: BP 94/72; PULSE 62; RESP 18; O2SAT 100
--- NOTE | 2022-09-03 10:06 | DCPLANNER ---
TCM called patient due to no primary care physician - no answer at this time.
== END 2022-08-25 09:32 | disposition home or self-care (01) ==
PROVIDERS: Emergency Provider Family Medicine
DX: E28.2 Polycystic ovarian syndrome (principal); N92.6 Irregular menstruation, unspecified; F17.210 Nicotine dependence, cigarettes, uncomplicated
CPT/HCPCS: 76830; 80053; 81003; 83690; 84703; 85025; 93005; 96361; 96374; 99285; J1885; J7030

== ENCOUNTER → 2023-01-07 17:58 | Outpatient (BNVA) | payer BC, MEDICAID, SELFPAY | PROVIDERS: Visit Provider Nurse Practitioner | DX: R39.9 Unspecified symptoms and signs involving the genitourinary system (principal); N12 Tubulo-interstitial nephritis, not specified as acute or chronic | CPT/HCPCS: 81000; 87086 ==

== ENCOUNTER 2023-02-06 21:46 | Emergency (ER) | payer BC, MEDICAID, SELFPAY ==
[2023-02-06 21:50] VITALS: BP 110/77; PULSE 76; RESP 16; TEMP 36.9; O2SAT 97; BMI 17.7
[2023-02-06 22:33] VITALS: BP 108/78; PULSE 120; RESP 21; O2SAT 92
--- NOTE | 2023-02-06 22:46 | ED_ITS ---
HPI - Female Genitourinary General: Chief complaint: Urogenital-Female Stated complaint: blood in urine Time Seen by Provider: 02/06/23 22:07 History of Present Illness: Patient is a 22-year-old female with past medical history significant for polycystic ovarian syndrome who presents to the emergency department for evaluation of abdominal pain and dysuria. Patient reports that last night she was urinating when she felt a pop in her groin followed by hematemesis. Patient states that since the incident her hematemesis is improved, however, she still has mild dysuria. Patient now endorses right lower quadrant abdominal pain that she currently rates as a 8 out of 10 in severity. Describes the pain as a sharp/stabbing sensation. Patient also endorses nausea and vomiting and has had approximately 4 episodes of emesis. She denies hematemesis. Patient states that she has had mild diarrhea but she denies constipation, melena, or hematochezia. Endorses a fever of approximately 101.0 ?F last night. Patient has been taking Tylenol for management of fever. Temperature in triage was 98.5 ?F. LMP was approximately January 25, 2023. Patient does have irregular periods due to her polycystic ovarian syndrome. She denies abnormal vaginal discharge and is unconcerned for sexually transmitted infection at this time. Admits to vaping both nicotine and cannabis. Denies drinking or other recreational drug use. No other complaints at this time. Associated symptoms: Reports abdominal pain and nausea; Deny headache(s) Review of Systems General: Reports: 10 or more systems reviewed and unremarkable except in HPI and below Const: Reports: fever(s) and chills ENMT: Denies: throat pain, odynophagia, ear or mastoid pain or ear discharge Card: Denies: chest pain, palpitations or irregular heart rhythm Resp: Denies: dyspnea, productive cough, non-productive cough or wheezing GI: Reports: abdominal pain, nausea, vomiting and diarrhea : Reports: flank pain, dysuria, urinary urgency, hematuria and pelvic pain Musc: Denies: neck pain, back pain or extremity pain Neuro: Denies: headache(s) or numbness in extremities Psych: Denies: anxiety or depression PFSH ED PFSH: Medical History Bleeding per rectum Gastric ulcer Gastritis Hematemesis No pertinent family history Family History Grandmother Breast cancer Grandmother Breast cancer Grandmother Hypertension maternal and paternal grandparents Denies family history of Diabetes Stroke Social History Smoking and tobacco/nicotine status: current every day tobacco/nicotine user Alcohol intake: never Substance/Drug Use: never Physical Exam Const: COMMON NORMALS: no acute distress, average body habitus, patient oriented x3 and alert HENMT: COMMON NORMALS: normocephalic, atraumatic, Normal external nose present, moist oral mucous membranes and oropharynx normal HEAD & SCALP: normocephalic and atraumatic NOSE: Normal external nose present Eye: COMMON NORMALS: Equal, round and reactive pupils present, EOMs intact bilaterally and conjunctivae normal CONJUNCTIVA: Yes conjunctivae normal PUPIL: Yes Equal, round and reactive pupils present Neck/C-Spine: COMMON NORMALS: full ROM, no lymphadenopathy and supple Chest: COMMONS NORMALS: normal inspection of the chest Resp: COMMON NORMALS: normal respiratory effort, No retractions, No use of accessory muscles and clear to auscultation bilaterally AUSCULTATION: clear to auscultation bilaterally Cardio: COMMON NORMALS: regular rate, regular rhythm, No gallops present (Cardio), No clicks present (Cardio), No murmurs present (Cardio) and No rub (Cardio) RATE: regular rate RHYTHM: regular rhythm GI: OTHER: Normoactive bowel sounds in all 4 quadrants. Right lower quadrant tenderness noted. No Hobbs sign, obturator sign, Rovsing sign, or peritoneal signs noted. No evidence of rebound tenderness. Neuro: COMMON NORMALS: patient oriented x3 SENSORIUM/ORIENTATION: Yes alert Course Vital Signs: Vital signs: Vital Signs Temperature 98.5 F 02/06/23 21:50 Pulse Rate 120 H 02/06/23 22:33 Respiratory Rate 21 H 02/06/23 22:33 Blood Pressure 108/78 02/06/23 22:33 Pulse Oximetry 92 02/06/23 22:33 Oxygen Delivery Me thod Room Air 02/06/23 22:33 MDM - Female Medical Decision Making Patient is a 22-year-old female with past medical history significant for polycystic ovarian syndrome who presents to the emergency department for evaluation of abdominal pain and dysuria. On physical examination patient is nontoxic and in no acute distress. Vital signs stable at discharge. CBC showed no evidence of leukocytosis. CMP, lipase, and urine unremarkable. Urinalysis showed 1+ ketones, 1 mg/dL of urobilinogen, and epithelial cells noted. No evidence of urinary tract infection. Urine drug screen positive for cannabis. Transvaginal ultrasound showed no evidence of ovarian torsion. CT of the abdomen pelvis with contrast showed no evidence of appendicitis or nephrolithiasis. Patient was given Zofran, 1 L of normal saline, and morphine in the emergency department for symptomatic relief. Patient stated improvement of symptoms after medication administration. Based off history and physical examination I do not believe the patient symptoms are emergent and warrant further emergent evaluation at this time. Patient states that she does have an TIRE ASSEMBLER provider. Increase oral hydration. See handout over generalized instructions. Call your TIRE ASSEMBLER and primary care provider tomorrow to schedule appointment for further management/evaluation. Clear liquid diet and slowly advance as tolerated. Tylenol and Motrin as needed for pain. Return to the emergency department for any rapid or worsening symptoms to include but not limited to increased abdominal pain, fever, chills, vomiting, lightheadedness, dizziness, or as needed. Patient stay understanding of all discharge instructions and was agreeable to plan of care. I discussed patient's history, exam, and all findings with Dr. Diego in the emergency department who agreed to my assessment and plan. Differential diagnosis includes but is not limited to ovarian torsion, ectopic , ovarian cyst, appendicitis, nephrolithiasis, urinary tract infection Lab Data 02/06/23 23:13 02/06/23 23:13 Radiology Impressions Transvaginal US 02/06/23 22:52 IMPRESSION: Unremarkable pelvic ultrasound examination. Abdomen/Pelvis CT 02/06/23 23:33 IMPRESSION: 1. The appendix is normal in appearance. No evidence of appendicitis. 2. Uterus and ovaries appear unremarkable. 3. No acute abnormality demonstrated in the abdomen and pelvis. Laboratory Results WBC 6.15 10^3/uL (4.5-13.0) 02/06/23 23:13 RBC 4.84 10^6/uL (3.85-5.65) 02/06/23 23:13 Hgb 14.30 g/dL (12.4-14.8) 02/06/23 23:13 Hct 43.3 % (36-47) 02/06/23 23:13 MCV 89.5 fl (85-98) 02/06/23 23:13 MCH 29.5 pg (27-33) 02/06/23 23:13 MCHC 33.0 g/dL (30-55) 02/06/23 23:13 RDW 12.5 % (12.1-15.1) 02/06/23 23:13 Plt Count 147 10^3/cmm (157-399) L 02/06/23 23:13 MPV 11.8 fL (7.4-10.4) H 02/06/23 23:13 Neut % (Auto) 43.4 % 02/06/23 23:13 Lymph % (Auto) 47.0 % 02/06/23 23:13 [place] % (Auto) 7.3 % 02/06/23 23:13 Eos % (Auto) 1.6 % 02/06/23 23:13 Baso % (Auto) 0.5 % 02/06/23 23:13 Neut # (Auto) 2.67 10^3/uL (1.8-8.0) 02/06/23 23:13 Lymph # (Auto) 2.9 10^3/uL (1.5-6.5) 02/06/23 23:13 [place] # (Auto) 0.5 10^3/uL (0.2-0.9) 02/06/23 23:13 Eos # (Auto) 0.1 10^3/uL (0.0-0.8) 02/06/23 23:13 Baso # (Auto) 0.0 10^3/uL (0.0-0.1) 02/06/23 23:13 Nucleated RBC % (auto) 0 % 02/06/23 23:13 Nucleated RBCs # 0.0 /100WBC 02/06/23 23:13 Sodium 140 mmol/L (136-145) 02/06/23 23:13 Potassium 3.5 mmol/L (3.5-5.1) 02/06/23 23:13 Chloride 105 mmol/L (98-107) 02/06/23 23:13 Carbon Dioxide 25 mmol/L (22-29) 02/06/23 23:13 Anion Gap 13.5 (5-19) 02/06/23 23:13 BUN 11 mg/dL (6-20) 02/06/23 23:13 Creatinine 0.8 mg/dL (0.5-0.9) 02/06/23 23:13 GFR Calculation 91.4 mL/min (90-130) 02/06/23 23:13 Glucose 79 mg/dL (65-115) 02/06/23 23:13 Calculated Osmolality 288 mOsm/kg (285-295) 02/06/23 23:13 Calcium 9.2 mg/dL (8.5-10.5) 02/06/23 23:13 Total Bilirubin 1.0 mg/dL (0.15-1.2) 02/06/23 23:13 AST 22 U/L (0-32) 02/06/23 23:13 ALT 63 U/L (0-33) H 02/06/23 23:13 Alkaline Phosphatase 49 U/L (35-105) 02/06/23 23:13 Total Protein 6.7 g/dL (6.6-8.7) 02/06/23 23:13 Albumin 4.6 g/dL (3.5-5.2) 02/06/23 23:13 Globulin 2.1 g/dL (1.3-4.6) 02/06/23 23:13 Lipase 32 U/L (13-60) 02/06/23 23:13 HCG, Qual Negative (Negative) 02/06/23 22:02 Urine Color Yellow (Yellow) 02/06/23 22:02 Urine Appearance Cloudy (CLEAR) A 02/06/23 22:02 Urine pH 7 (5-7) 02/06/23 22:02 Ur Specific [place] 1.010 (1.005-1.030) 02/06/23 22:02 Urine Protein Neg (Negative) 02/06/23 22:02 Urine Glucose (UA) Norm (Normal) 02/06/23 22:02 Urine Ketones 1+ (Negative) H 02/06/23 22:02 Urine Blood Neg (Negative) 02/06/23 22:02 Urine Nitrate Negative (Negative) 02/06/23 22:02 Urine Bilirubin Neg (Negative) 02/06/23 22:02 Urine Urobilinogen 1 mg/dL (Negative) H 02/06/23 22:02 Ur Leukocyte Esterase Negative (Negative) 02/06/23 22:02 Urine RBC None /hpf (0-2) 02/06/23 22:02 Urine WBC None /hpf (0-5) 02/06/23 22:02 Ur Squamous Epith Cells 0-4 /hpf (0-5) H 02/06/23 22:02 Amorphous Sediment 4+ /hpf 02/06/23 22:02 Urine Bacteria None /hpf (NONE) 02/06/23 22:02 Urine Opiates Screen Negative ng/mL (Negative) 02/06/23 22:02 Ur Barbiturates Screen Negative ng/mL (Negative) 02/06/23 22:02 Ur Phencyclidine Scrn Negative ng/mL (Negative) 02/06/23 22:02 Ur Amphetamines Screen Negative ng/mL (Negative) 02/06/23 22:02 U Benzodiazepines Scrn Negative ng/mL (Negative) 02/06/23 22:02 Urine Cocaine Screen Negative ng/mL (Negative) 02/06/23 22:02 U Marijuana (THC) Screen Positive ng/mL (Negative) H 02/06/23 22:02 All radiology interpretation(s) finalized by discharge Discharge Plan Discharge Patient Disposition: Home Clinical Impression: Abdominal pain Condition: Stable Prescriptions: No Action ciprofloxacin HCl 500 mg tablet 500 mg PO BID 7 Days Qty: 14 0RF Discharge Orders: Discharge ED (Routine); Ordered 02/07/23 Ordered By: Quentin Rockwell Patient Instructions: Abdominal Pain (ED) Activity Restrictions/Additional Instructions: As discussed in room no acute or concerning pathology was noted on your imaging or laboratory work. Increase oral hydration. See handout over generalized instructions. Call your TIRE ASSEMBLER and primary care provider tomorrow to schedule appointment for further management/evaluation. Clear liquid diet and slowly advance as tolerated. Tylenol and Motrin as needed for pain. Return to the emergency department for any rapid or worsening symptoms to includ e but not limited to increased abdominal pain, fever, chills, vomiting, lightheadedness, dizziness, or as needed. Coding Level of Care Code ED [employer] Operator for Kirsten Melendez
--- NOTE | 2023-02-06 22:52 | USR_ITS ---
PROCEDURE INFORMATION: Exam: US Pelvis, Transvaginal Exam date and time: 02/06/2023 11:49 PM Age: 22 years old Clinical indication: Abdominal pain and pelvic pain; Right lower quadrant; Additional info: Pelvic pain/rlq pain TECHNIQUE: Imaging protocol: Real-time transvaginal pelvic ultrasound with image documentation. Transvaginal imaging was used for better evaluation of the endometrium, adnexa, and/or cervix. COMPARISON: US transvaginal [id number] 08/25/2022 7:57 AM FINDINGS: Uterus: Uterus measures 6.6 cm longitudinal x 2.4 cm AP x 3.6 cm transverse. The uterus is normal in size and echotexture. No focal lesions are demonstrated in the uterus. The endometrium is unremarkable. The endometrium measures 2 mm in AP thickness. Right ovary/adnexa: Right ovary measures 4.0 x 2.0 x 2.8 cm. Follicular type cysts are demonstrated. Appropriate ovarian blood flow demonstrated by duplex imaging. Left ovary/adnexa: Left ovary measures 3.5 x 2.3 x 2.7 cm. Follicular type cysts are demonstrated. Appropriate ovarian blood flow demonstrated by duplex imaging. Intraperitoneal space: No free fluid. US/US transvaginal [id number] IMPRESSION: Unremarkable pelvic ultrasound examination.
[2023-02-06 23:14] LABS: Add Urine Microscopic? YES; Amorphous Sediment Urine 4+ /hpf; Bilirubin Urine Neg (Negative); Blood Urine Neg (Negative); Glucose Urine UA Norm (Normal); HCG Qualitative Urine. Negative (Negative); Ketones Urine 1+ (Negative); Leukocyte Esterase Urine Negative (Negative); Nitrate Urine Negative (Negative); Protein Urine Neg (Negative); Squamous Epithelial Cell Urine 0-4 /hpf (0-5); Urine Appearance Cloudy (CLEAR); Urine Color Yellow (Yellow); Urobilinogen Urine 1 mg/dL (Negative); pH Urine 7 (5-7)
[2023-02-06 23:15] LABS: Add Urine Culture? No
[2023-02-06 23:16] LABS: Amphetamines Screen Urine Negative (Negative); Barbiturates Screen Urine Negative (Negative); Benzodiazepines Screen Urine Negative (Negative); Cocaine Screen Urine Negative (Negative); Opiate Screen Urine Negative (Negative); PCP Screen Urine Negative (Negative); THC Screen Urine Positive (Negative)
[2023-02-06 23:19] LABS: Basophils % 0.5 %; Eosinophils # 0.1 10^3/uL (0.0-0.8); Eosinophils % 1.6 %; Hematocrit 43.3 % (36-47); Lymphocytes # 2.9 10^3/uL (1.5-6.5); Mean Corpuscular Hemoglobin 29.5 pg (27-33); Mean Corpuscular Volume 89.5 fl (85-98); Mean Platelet Volume 11.8 fL (7.4-10.4); Monocytes # 0.5 10^3/uL (0.2-0.9); Monocytes % 7.3 %; Neutrophils # 2.67 10^3/uL (1.8-8.0); Neutrophils % 43.4 %; Nucleated Red Blood Cells % 0 %; Platelet Count 147 10^3/cmm (157-399); Red Blood Count 4.84 10^6/uL (3.85-5.65); Red Cell Distribution Width 12.5 % (12.1-15.1); White Blood Count 6.15 10^3/uL (4.5-13.0)
[2023-02-06] MEDS: ondansetron 2 mg/ML SDV 2 mL 4 MG IVP (23:25)
[2023-02-06] MEDS: sodium chloride 0.9% 1,000 ML 999 ML IV (23:25)
--- NOTE | 2023-02-06 23:33 | CTR_ITS ---
PROCEDURE INFORMATION: Exam: CT Abdomen And Pelvis With Contrast Exam date and time: 02/07/2023 12:04 AM Age: 22 years old Clinical indication: Abdominal pain; Localized; Right lower quadrant (rlq); Patient HX: Rlq pain. History of pcos. TECHNIQUE: Imaging protocol: Computed tomography of the abdomen and pelvis with contrast. Radiation optimization: All CT scans at this facility use at least one of these dose optimization techniques: automated exposure control; mA and/or kV adjustment per patient size (includes targeted exams where dose is matched to clinical indication); or iterative reconstruction. Contrast material: OMNI 350; Contrast volume: 75 ml; Contrast route: INTRAVENOUS (IV); REPORTING DATA: Count of CT and Cardiac NM exams in prior 12 months: This patient has received 3 known CTs and 0 known cardiac nuclear medicine studies in the 12 months prior to the current study. COMPARISON: CT abdomen pelvis w con* [id number] 04/30/2022 10:07 AM RADIATION DOSE METRICS: Total DLP (mGy-cm): 302.34 FINDINGS: Lungs: The lung bases appear unremarkable. Liver: Small geographic area of focal fatty infiltration of the liver noted near the falciform ligament. No acute hepatic abnormality. Gallbladder and bile ducts: No calcified stones. No ductal dilation. Pancreas: Unremarkable. No ductal dilation. Spleen: Unremarkable. No splenomegaly. Adrenal glands: Unremarkable. No mass. Kidneys and ureters: Unremarkable. No hydronephrosis. No solid mass. Stomach and bowel: Unremarkable. No obstruction. No mucosal thickening. Appendix: The appendix is normal in appearance. No evidence of appendicitis. Intraperitoneal space: No pneumoperitoneum. No significant fluid collection. Vasculature: No abdominal aortic aneurysm. Lymph nodes: No pathologically enlarged lymph nodes. Urinary bladder: Empty urinary bladder appears unremarkable. Reproductive: Uterus and ovaries appear unremarkable. Bones/joints: No acute fracture or other acute osseous abnormality. Soft tissues: Unremarkable. CT/CT abdomen pelvis w con* [id number] IMPRESSION: 1. The appendix is normal in appearance. No evidence of appendicitis. 2. Uterus and ovaries appear unremarkable. 3. No acute abnormality demonstrated in the abdomen and pelvis.
[2023-02-06 23:40] LABS: Alanine Aminotransferase 63 U/L (0-33); Albumin Level 4.6 g/dL (3.5-5.2); Alkaline Phosphatase 49 U/L (35-105); Anion Gap 13.5 (5-19); Aspartate Amino Transferase 22 U/L (0-32); Blood Urea Nitrogen 11 mg/dL (6-20); Calcium 9.2 mg/dL (8.5-10.5); Carbon Dioxide 25 mmol/L (22-29); Chloride 105 mmol/L (98-107); Globulin 2.1 g/dL (1.3-4.6); Glomerular Filtration Rate 91.4 mL/min (90-130); Glucose 79 mg/dL (65-115); Lipase 32 U/L (13-60); Osmolality Calculated 288 mOsm/kg (285-295); Potassium 3.5 mmol/L (3.5-5.1); Sodium 140 mmol/L (136-145); Total Protein 6.7 g/dL (6.6-8.7)
[2023-02-07] MEDS: iohexol 350 mg/mL 500 mL Btl (per mL) IV (00:08)
[2023-02-07] MEDS: morphine 4 mg/mL SDV 1 mL 2 MG IVP (00:37)
[2023-02-07 01:04] VITALS: BP 108/78; PULSE 120; RESP 21; O2SAT 92
== END 2023-02-07 01:06 | disposition home or self-care (01) ==
PROVIDERS: Emergency Provider Physician Assistant
DX: R10.31 Right lower quadrant pain (principal); Z72.0 Tobacco use
CPT/HCPCS: 36415; 74177; 76830; 80053; 80306; 81001; 81025; 83690; 85025; 96374; 96375; 99285; J2270; J2405; J7030; Q9967

== ENCOUNTER 2023-03-07 09:54 | Emergency (ER) | payer BC, MEDICAID, SELFPAY ==
[2023-03-07 10:11] VITALS: BP 115/77; PULSE 74; RESP 18; TEMP 36.6; O2SAT 100
[2023-03-07 11:24] LABS: Basophils % 0.5 %; Eosinophils # 0.1 10^3/uL (0.0-0.8); Eosinophils % 1.8 %; Hematocrit 43.2 % (36-47); Lymphocytes # 1.4 10^3/uL (1.5-6.5); Lymphocytes % 25.6 %; Mean Corpuscular HGB Conc 31.5 g/dL (30-55); Mean Corpuscular Hemoglobin 29.8 pg (27-33); Mean Corpuscular Volume 94.7 fl (85-98); Mean Platelet Volume 11.7 fL (7.4-10.4); Monocytes # 0.4 10^3/uL (0.2-0.9); Monocytes % 6.9 %; Neutrophils # 3.58 10^3/uL (1.8-8.0); Nucleated Red Blood Cells % 0 %; Platelet Count 123 10^3/cmm (157-399); Red Blood Count 4.56 10^6/uL (3.85-5.65); Red Cell Distribution Width 13.2 % (12.1-15.1); White Blood Count 5.51 10^3/uL (4.5-13.0)
[2023-03-07 11:44] LABS: Alanine Aminotransferase 14 U/L (0-33); Alkaline Phosphatase 37 U/L (35-105); Anion Gap 14.1 (5-19); Aspartate Amino Transferase 13 U/L (0-32); Blood Urea Nitrogen 15 mg/dL (6-20); Calcium 8.8 mg/dL (8.5-10.5); Carbon Dioxide 23 mmol/L (22-29); Chloride 104 mmol/L (98-107); Globulin 2.6 g/dL (1.3-4.6); Glomerular Filtration Rate 106.7 mL/min (90-130); Glucose 91 mg/dL (65-115); Osmolality Calculated 284 mOsm/kg (285-295); Potassium 4.1 mmol/L (3.5-5.1); Sodium 137 mmol/L (136-145); Total Bilirubin 0.5 mg/dL (0.15-1.2); Total Protein 6.6 g/dL (6.6-8.7)
--- NOTE | 2023-03-07 12:24 | ED_ITS ---
HPI - General Adult 2 General: Chief complaint: Vaginal Bleeding Stated complaint: vag bleeding, Time Seen by Provider: 03/07/23 10:07 Source: patient Mode of arrival: ambulatory History of Present Illness: 22-year-old female with history of polyc ystic ovarian syndrome reports to the emergency room with complaints of vaginal bleeding that began overnight. Earlier this week she had several positive home test on February 06 of this year she had a pelvic ultrasound with showed some ovarian cyst no intrauterine your test on that day was also negative. No dysuria urgency or frequency. She does have a history of irregular periods minimal cramping bleeding vaginally has been very light no vaginal discharge Onset (ago): hour(s) Relieving factors: none Exacerbating factors: none Associated symptoms: Deny chest pain, cough, diaphoresis, decreased appetite, dyspnea, fevers/chills, headache(s), malaise, nausea, rash, palpitations, short of breath, vomiting or weakness Treatments prior to arrival: none Review of Systems 2 Const: Denies: malaise or diaphoresis Card: Denies: chest pain or palpitations Resp: Denies: dyspnea GI: Denies: nausea or vomiting : Denies: dysuria, urinary frequency or urinary urgency Musc: Denies: neck pain or back pain Skin/Breast: Denies: rash Neuro: Denies: headache(s) PFSH ED 2 PFSH: Medical History No pertinent family history Bleeding per rectum Hematemesis Gastritis Gastric ulcer Family History Grandmother Breast cancer Grandmother Breast cancer Grandmother Hypertension maternal and paternal grandparents Denies family history of Diabetes Stroke Social History Smoking and tobacco/nicotine status: current every day tobacco/nicotine user Alcohol intake: never Substance/Drug Use: never Female Reproductive History: Date of last menstrual period: 01/22/23 Physical Exam 2 Const: COMMON NORMALS: no acute distress GENERAL APPEARANCE: cooperative and comfortable ORIENTATION/CONSCIOUSNESS: Yes awake, Yes oriented to person, Yes oriented to place and Yes oriented to time HENMT: COMMON NORMALS: normocephalic, atraumatic and hearing grossly normal bilaterally HEAD & SCALP: normocephalic and atraumatic Resp: COMMON NORMALS: normal respiratory effort, No retractions, No use of accessory muscles and clear to auscultation bilaterally AUSCULTATION: clear to auscultation bilaterally Cardio: COMMON NORMALS: regular rate, regular rhythm and No murmurs present (Cardio) RATE: regular rate RHYTHM: regular rhythm GI: COMMON NORMALS: Soft to palpation and No hepatosplenomegaly present A USCULTATION: Yes normoactive bowel sounds PALPATION: Yes Soft to palpation, No Tenderness to palpation present (GI), No Guarding due to palpation present (GI) and Yes No hepatosplenomegaly present Extremity: COMMON NORMALS: normal to inspection, capillary refill normal, no clubbing, cyanosis or edema, no calf tenderness and no pedal edema Neuro: SENSORIUM/ORIENTATION: Yes oriented to person, Yes oriented to place and Yes oriented to time Skin: COMMON NORMALS: no rashes or lesions noted GENERAL SKIN EXAM: no rashes or lesions noted Course 2 Vital Signs: Vital signs: Vital Signs Temperature 97.9 F 03/07/23 10:11 Pulse Rate 74 03/07/23 10:11 Respiratory Rate 18 03/07/23 10:11 Blood Pressure 115/77 03/07/23 10:11 Pulse Oximetry 100 03/07/23 10:11 Oxygen Delivery Me thod Room Air 03/07/23 10:11 MDM - General Adult Medical Decision Making Beta-hCG 1100. She is seeing relatively minimal bleeding. No dysuria. We did attempt to get a UA but patient was unable to tolerate attempts at immediate cath. We will discharge the patient home. She has a follow-up appointment in 2 days to establish for OB care. She will need to repeat beta-hCG if greater than 1500 can pursue pelvic ultrasound to ensure intrauterine . Return if has worsening signs or symptoms. No significant pelvic pain at this time. Medical Records I reviewed the patient's medical records. Lab Data I reviewed the patient's lab results. 03/07/23 11:06 03/07/23 11:06 Laboratory Results WBC 5.51 10^3/uL (4.5-13.0) 03/07/23 11:06 RBC 4.56 10^6/uL (3.85-5.65) 03/07/23 11:06 Hgb 13.60 g/dL (12.4-14.8) 03/07/23 11:06 Hct 43.2 % (36-47) 03/07/23 11:06 MCV 94.7 fl (85-98) 03/07/23 11:06 MCH 29.8 pg (27-33) 03/07/23 11:06 MCHC 31.5 g/dL (30-55) 03/07/23 11:06 RDW 13.2 % (12.1-15.1) 03/07/23 11:06 Plt Count 123 10^3/cmm (157-399) L 03/07/23 11:06 MPV 11.7 fL (7.4-10.4) H 03/07/23 11:06 Neut % (Auto) 65.0 % 03/07/23 11:06 Lymph % (Auto) 25.6 % 03/07/23 11:06 [place] % (Auto) 6.9 % 03/07/23 11:06 Eos % (Auto) 1.8 % 03/07/23 11:06 Baso % (Auto) 0.5 % 03/07/23 11:06 Neut # (Auto) 3.58 10^3/uL (1.8-8.0) 03/07/23 11:06 Lymph # (Auto) 1.4 10^3/uL (1.5-6.5) L 03/07/23 11:06 [place] # (Auto) 0.4 10^3/uL (0.2-0.9) 03/07/23 11:06 Eos # (Auto) 0.1 10^3/uL (0.0-0.8) 03/07/23 11:06 Baso # (Auto) 0.0 10^3/uL (0.0-0.1) 03/07/23 11:06 Nucleated RBC % (auto) 0 % 03/07/23 11:06 Nucleated RBCs # 0.0 /100WBC 03/07/23 11:06 Sodium 137 mmol/L (136-145) 03/07/23 11:06 Potassium 4.1 mmol/L (3.5-5.1) 03/07/23 11:06 Chloride 104 mmol/L (98-107) 03/07/23 11:06 Carbon Dioxide 23 mmol/L (22-29) 03/07/23 11:06 Anion Gap 14.1 (5-19) 03/07/23 11:06 BUN 15 mg/dL (6-20) 03/07/23 11:06 Creatinine 0.7 mg/dL (0.5-0.9) 03/07/23 11:06 GFR Calculation 106.7 mL/min (90-130) 03/07/23 11:06 Glucose 91 mg/dL (65-115) 03/07/23 11:06 Calculated Osmolality 284 mOsm/kg (285-295) L 03/07/23 11:06 Calcium 8.8 mg/dL (8.5-10.5) 03/07/23 11:06 Total Bilirubin 0.5 mg/dL (0.15-1.2) 03/07/23 11:06 AST 13 U/L (0-32) 03/07/23 11:06 ALT 14 U/L (0-33) 03/07/23 11:06 Alkaline Phosphatase 37 U/L (35-105) 03/07/23 11:06 Total Protein 6.6 g/dL (6.6-8.7) 03/07/23 11:06 Albumin 4.0 g/dL (3.5-5.2) 03/07/23 11:06 Globulin 2.6 g/dL (1.3-4.6) 03/07/23 11:06 Ser , Semi-Qnt 1132.00 mIU/mL 03/07/23 11:06 No radiology studies performed this visit Discharge Plan Discharge Patient Disposition: Home Clinical Impression: Vaginal bleeding, First trimester Condition: Stable Prescriptions: No Action pantoprazole 40 mg tablet,delayed release (DR/EC) 40 mg PO DAILY Zafemy 150-35 mcg/24 hr patch weekly 1 patch topical Q7D Discharge Orders: Discharge ED (Routine); Ordered 03/07/23 Ordered By: Eloy Tamayo Referrals: Ramona Booker FNP [Primary Care Provider] - Discharge Diet: Usual diet Discharge Activity: Limit activity as instructed Patient Instructions: Opioid Safety, Pain Management Activity Restrictions/Additional Instructions: Thank you for choosing [facility] for your healthcare needs today. Please realize this is an emergency room and that we are providing you with a medical screening exam and this may not be complete and all inclusive of all the testing and or work up that you may need to determine your ailment or severity of your illness. It is very important that you follow up as instructed or that you return to the Emergency Department should you have concerns or if your condition changes or worsens in any way. You were seen today for with complaints of vaginal bleeding. Your test was positive with a hormone level that is very low combined with a negative pelvic ultrasound on February 06, 2023 reflects a very early stage of . It is possible that you may have a miscarriage. To determine this you will need to have a repeat quantitative beta-hCG done in 72 hours with your primary care doctor. Because you are hormone level is less than 1500 a ultrasound would not be helpful at this stage. Coding Level of Care Code ED Taxi Driver for Kirsten Melendez
[2023-03-07 12:25] VITALS: BP 104/65; PULSE 65; O2SAT 98
== END 2023-03-07 12:26 | disposition home or self-care (01) ==
PROVIDERS: Emergency Provider Family Medicine; PCP Registered Nurse
DX: O20.9 Hemorrhage in early pregnancy, unspecified (principal); Z3A.00 Weeks of gestation of pregnancy not specified; O99.331 Smoking (tobacco) complicating pregnancy, first trimester; F17.210 Nicotine dependence, cigarettes, uncomplicated
CPT/HCPCS: 36415; 80053; 84702; 85025; 99283

== ENCOUNTER 2023-04-09 20:32 | Emergency (ER) | payer BC, MEDICAID, SELFPAY ==
[2023-04-09 20:36] VITALS: BP 104/70; PULSE 80; RESP 18; TEMP 36.5; O2SAT 100; BMI 19.3
[2023-04-09 21:22] LABS: Urine Appearance Hazy (CLEAR); Urine Color Yellow (Yellow)
[2023-04-09 21:23] LABS: Add Urine Microscopic? YES; Bacteria Urine TR /hpf; Bilirubin Urine Neg (Negative); Blood Urine Neg (Negative); Glucose Urine UA Norm (Normal); Ketones Urine 1+ (Negative); Leukocyte Esterase Urine 1+ (Negative); Nitrate Urine Negative (Negative); Protein Urine Trace (Negative); RBC Urine 0-4 /hpf (0-2); Urobilinogen Urine 1 mg/dL (Negative); WBC Urine 15-25 /hpf (0-5); pH Urine 7 (5-7)
[2023-04-09 21:24] LABS: Mucus Urine 2+ /hpf
[2023-04-09 21:45] VITALS: PULSE 69; O2SAT 97
[2023-04-09 21:55] LABS: HCG Qualitative Urine. Negative (Negative)
[2023-04-09] MEDS: sodium chloride 0.9% 1,000 ML 999 ML IV (21:58)
[2023-04-09] MEDS: ondansetron 2 mg/ML SDV 2 mL 4 MG IVP (21:58)
--- NOTE | 2023-04-09 22:01 | ED_ITS ---
HPI - Abdominal Pain 2 General: Chief Complaint: Abdominal Pain Stated Complaint: lower abd pain Time Seen by Provider: 04/09/23 20:59 History of Present Illness: This is a 23-year-old female that presents to the emergency department with complaints of low abdominal burning and pain with nausea and vomiting. Onset of symptoms yesterday. Patient is very anxious here in the emergency department. She states that last month she started with similar symptoms and found out that she was miscarrying. Patient complains today of burning with urination, suprapubic abdominal pain, nausea and vomiting, and spotting. Patient reports a history of PCOS so she is unable to state when her last menstrual cycle started. Associated Symptoms: Reports bloating, chills, dysuria, nausea and vomiting; Denies constipation, GI cramping, diarrhea, fever(s), hematochezia and hematuria Related Data: Date of Last Menstrual Period: 03/07/23 Review of Systems 2 General: Reports: 10 or more systems reviewed and unremarkable except in HPI and below Const: Reports: chills and change in appetite; Denies: fever(s), change in weight, fatigue or malaise Card: Denies: chest pain, palpitations, irregular heart rhythm, edema, dyspnea on exertion, orthopnea or leg pain with exertion Resp: Denies: dyspnea, productive cough, non-productive cough, wheezing, stridor or chest congestion GI: Reports: abdominal pain, nausea, vomiting and bloating; Denies: dysphagia, diarrhea, constipation, GI cramping or hematochezia : Reports: difficulty voiding, dysuria, urinary frequency, urinary urgency, urinary hesitancy, vaginal bleeding and irregular period; Denies: flank pain, oliguria or hematuria Musc: Denies: neck pain, back pain, extremity pain, joint pain, joint swelling, joint redness, joint warmth or muscle weakness Skin/Breast: Denies: rash, pruritus, erythema, photosensitivity or new lesions Neuro: Denies: headache(s), numbness in extremities, weakness in extremities, sensory changes, lack of coordination, difficulty walking, frequent falls, dizziness, confusion, Slurred speech present, difficulty communicating thoughts, seizure-like activity or involuntary movements Endo: Denies: polyuria, polydipsia or tired all the time Michael/Lymph: Denies: easy bruising or easy bleeding PFSH ED 2 PFSH: Medical History No pertinent family history Bleeding per rectum Hematemesis Gastritis Gastric ulcer Family History Grandmother Breast cancer Grandmother Breast cancer Grandmother Hypertension maternal and paternal grandparents Denies family history of Diabetes Stroke Social History Smoking and tobacco/nicotine status: current every day tobacco/nicotine user Alcohol intake: never Substance/Drug Use: never Female Reproductive History: Date of last menstrual period: 03/07/23 Physical Exam 2 Const: COMMON NORMALS: no acute distress, patient oriented x3 and alert G ENERAL APPEARANCE: cooperative ORIENTATION/CONSCIOUSNESS: Yes awake, Yes oriented to person, Yes oriented to place and Yes oriented to time Lymph: LYMPHATIC: no lymphadenopathy noted Chest: COMMONS NORMALS: normal inspection of the chest Breast/axilla inspection: Yes no chest deformity, asymmetry, normal contours, no nodules, masses, tenderness Resp: COMMON NORMALS: normal respiratory effort, No retractions, No use of accessory muscles and clear to auscultation bilaterally EFFORT & INSPECTION: Yes able to speak in complete sentences and Yes symmetric chest movement A USCULTATION: clear to auscultation bilaterally Cardio: COMMON NORMALS: regular rate, regular rhythm and Peripheral pulses 2+ throughout RATE: regular rate RHYTHM: regular rhythm PERIPHERAL PULSES: Peripheral pulses 2+ throughout GI: COMMON NORMALS: Soft to palpation and non-tender INSPECTION: Yes normal to inspection AUSCULTATION: Yes Hypoactive bowel sounds present PALPATION: Yes Soft to palpation and Yes Tenderness to palpation present (GI) Details: LLQ and RLQ RECTAL EXAM: deferred Extremity: COMMON NORMALS: normal to inspection GENERAL: Yes normal exam except as noted Neuro: COMMON NORMALS: patient oriented x3 SENSORIUM/ORIENTATION: Yes alert, Yes oriented to person, Yes oriented to place and Yes oriented to time CRANIAL NERVES: Yes CN normal except as noted Psych: COMMON NORMALS: mental status grossly normal, Normal thought process present, cooperative, activity/motor behavior normal, denies homicidal ideation and denies suicidal ideation THOUGHT PROCESS: Normal thought process present Skin: COMMON NORMALS: no rashes or lesions noted, no wounds and turgor normal GENERAL SKIN EXAM: no rashes or lesions noted and turgor normal Course 2 Vital Signs: Vital signs: Vital Signs Temperature 97.7 F 04/09/23 20:36 Pulse Rate 69 04/09/23 21:45 Respiratory Rate 16 04/09/23 22:07 Blood Pressure 104/70 04/09/23 20:36 Pulse Oximetry 97 04/09/23 21:45 Oxygen Delivery Me thod Room Air 04/09/23 20:36 MDM - Abdominal Pain Medical Decision Making Patient evaluated in the emergency department today for lower abdominal/suprapubic abdominal pain with urinary symptoms (burning with urination, frequency, urgency). Patient was evaluated yesterday by PCP and they ran a urinalysis; this was negative. Patient has concerns of and possible miscarriage since she had similar symptoms before. She underwent diagnostic evaluation that included urinalysis, urine test, CBC, CMP. I gave her IV with a liter of fluid, pain management through fentanyl and Zofran to help with the nausea. Urinalysis revealed trace bacteria but leukoesterase present along with white blood cells. She was treated with cephalexin and Pyridium Incidentally she is thrombocytopenic. I talked with her and her father about following up with PCP. This will need to be rechecked/followed. Patient is to follow-up in the emergency department should she develop new, concerning, worsening symptoms. All questions answered Lab Data 04/09/23 22:07 04/09/23 22:07 Labs/Radiology: Laboratory Results WBC 7.47 10^3/uL (3.29-11.43) 04/09/23 22:07 RBC 4.79 10^6/uL (3.85-5.65) 04/09/23 22:07 Hgb 14.20 g/dL (11.27-16.99) 04/09/23 22:07 Hct 41.9 % (36-47) 04/09/23 22:07 MCV 87.5 fl (85-98) 04/09/23 22:07 MCH 29.6 pg (27-33) 04/09/23 22:07 MCHC 33.9 g/dL (30-55) 04/09/23 22:07 RDW 12.7 % (12.1-15.1) 04/09/23 22:07 Plt Count 132 10^3/cmm (157-399) L 04/09/23 22:07 MPV 12.4 fL (7.4-10.4) H 04/09/23 22:07 Neut % (Auto) 62.2 % 04/09/23 22:07 Lymph % (Auto) 29.7 % 04/09/23 22:07 [place] % (Auto) 6.6 % 04/09/23 22:07 Eos % (Auto) 1.1 % 04/09/23 22:07 Baso % (Auto) 0.3 % 04/09/23 22:07 Neut # (Auto) 4.65 10^3/uL (1.8-7.7) 04/09/23 22:07 Lymph # (Auto) 2.2 10^3/uL (0.8-4.8) 04/09/23 22:07 [place] # (Auto) 0.5 10^3/uL (0.2-0.9) 04/09/23 22:07 Eos # (Auto) 0.1 10^3/uL (0.0-0.8) 04/09/23 22:07 Baso # (Auto) 0.0 10^3/uL (0.0-0.1) 04/09/23 22:07 Nucleated RBC % (auto) 0 % 04/09/23 22:07 Nucleated RBCs # 0.0 /100WBC 04/09/23 22:07 Sodium 141 mmol/L (136-145) 04/09/23 22:07 Potassium 3.4 mmol/L (3.5-5.1) L 04/09/23 22:07 Chloride 106 mmol/L (98-107) 04/09/23 22:07 Carbon Dioxide 23 mmol/L (22-29) 04/09/23 22:07 Anion Gap 15.4 (5-19) 04/09/23 22:07 BUN 8 mg/dL (6-20) 04/09/23 22:07 Creatinine 0.8 mg/dL (0.5-0.9) 04/09/23 22:07 GFR Calculation 90.5 mL/min (90-130) 04/09/23 22:07 Glucose 86 mg/dL (65-115) 04/09/23 22:07 Calculated Osmolality 290 mOsm/kg (285-295) 04/09/23 22:07 Calcium 9.3 mg/dL (8.5-10.5) 04/09/23 22:07 Total Bilirubin 0.9 mg/dL (0.15-1.2) 04/09/23 22:07 AST 17 U/L (0-32) 04/09/23 22:07 ALT 15 U/L (0-33) 04/09/23 22:07 Alkaline Phosphatase 51 U/L (35-105) 04/09/23 22:07 Total Protein 7.6 g/dL (6.6-8.7) 04/09/23 22:07 Albumin 4.6 g/dL (3.5-5.2) 04/09/23 22:07 Globulin 3.0 g/dL (1.3-4.6) 04/09/23 22:07 HCG, Qual Negative (Negative) 04/09/23 20:23 Urine Color Yellow (Yellow) 04/09/23 20:30 Urine Appearance Hazy (CLEAR) A 04/09/23 20:30 Urine pH 7 (5-7) 04/09/23 20:30 Ur Specific [place] 1.010 (1.005-1.030) 04/09/23 20:30 Urine Protein Trace (Negative) 04/09/23 20:30 Urine Glucose (UA) Norm (Normal) 04/09/23 20:30 Urine Ketones 1+ (Negative) H 04/09/23 20:30 Urine Blood Neg (Negative) 04/09/23 20:30 Urine Nitrate Negative (Negative) 04/09/23 20:30 Urine Bilirubin Neg (Negative) 04/09/23 20:30 Urine Urobilinogen 1 mg/dL (Negative) H 04/09/23 20:30 Ur Leukocyte Esterase 1+ (Negative) H 04/09/23 20:30 Urine RBC 0-4 /hpf (0-2) H 04/09/23 20:30 Urine WBC 15-25 /hpf (0-5) H 04/09/23 20:30 Ur Squamous Epith Cells 5-10 /hpf (0-5) H 04/09/23 20:30 Amorphous Sediment Not Reportable 04/09/23 20:30 Urine Bacteria Tr /hpf (NONE) 04/09/23 20:30 Urine Mucus 2+ /hpf 04/09/23 20:30 No radiology studies performed this visit Discharge Plan Discharge Patient Disposition: Home Clinical Impression: Thrombocytopenia, Urinary tract infection Condition: Stable Prescriptions: New cephalexin 500 mg capsule 500 mg PO Q6H 7 Days Qty: 28 0RF phenazopyridine [Pyridium] 100 mg tablet 100 mg PO TID PRN (Reason: Bladder spasm) Qty: 14 0RF ondansetron 4 mg tablet,disintegrating 4 mg PO Q8H 5 Days Qty: 15 0RF No Action pantoprazole 40 mg tablet,delayed release (DR/EC) 40 mg PO DAILY Zafemy 150-35 mcg/24 hr patch weekly 1 patch topical Q7D Discharge Orders: Discharge ED (Routine); Ordered 04/09/23 Ordered By: Trever Carpio Referrals: Ramona Booker FNP [Primary Care Provider] - Discharge Diet: Advance as tolerated Discharge Activity: Resume usual activity Patient Instructions: Opioid Safety, Pain Management, Thrombocytopenia, Urinary Tract Infection - Women Activity Restrictions/Additional Instructions: Follow-up with your primary care doctor regarding your thrombocytopenia. This will be something that needs to be rechecked Take your antibiotics as scheduled You can add in Pyridium for bladder spasms and Zofran for nausea. Return to the emergency department for new concerning or worsening symptoms Coding Level of Care Code ED Screw Machine Adjuster Automatic for Kirsten Melendez
[2023-04-09] MEDS: cephALEXin 500 mg Capsule PO (22:06)
[2023-04-09 22:07] VITALS: RESP 16
[2023-04-09] MEDS: fentaNYL 50 mcg/mL INJ 2mL IVP (22:07)
[2023-04-09 22:12] LABS: Basophils % 0.3 %; Eosinophils # 0.1 10^3/uL (0.0-0.8); Eosinophils % 1.1 %; Hematocrit 41.9 % (36-47); Lymphocytes # 2.2 10^3/uL (0.8-4.8); Lymphocytes % 29.7 %; Mean Corpuscular HGB Conc 33.9 g/dL (30-55); Mean Corpuscular Hemoglobin 29.6 pg (27-33); Mean Corpuscular Volume 87.5 fl (85-98); Mean Platelet Volume 12.4 fL (7.4-10.4); Monocytes # 0.5 10^3/uL (0.2-0.9); Monocytes % 6.6 %; Neutrophils # 4.65 10^3/uL (1.8-7.7); Neutrophils % 62.2 %; Nucleated Red Blood Cells % 0 %; Platelet Count 132 10^3/cmm (157-399); Red Blood Count 4.79 10^6/uL (3.85-5.65); Red Cell Distribution Width 12.7 % (12.1-15.1); White Blood Count 7.47 10^3/uL (3.29-11.43)
[2023-04-09 22:45] LABS: Alanine Aminotransferase 15 U/L (0-33); Albumin Level 4.6 g/dL (3.5-5.2); Alkaline Phosphatase 51 U/L (35-105); Anion Gap 15.4 (5-19); Aspartate Amino Transferase 17 U/L (0-32); Blood Urea Nitrogen 8 mg/dL (6-20); Calcium 9.3 mg/dL (8.5-10.5); Carbon Dioxide 23 mmol/L (22-29); Chloride 106 mmol/L (98-107); Glomerular Filtration Rate 90.5 mL/min (90-130); Glucose 86 mg/dL (65-115); Osmolality Calculated 290 mOsm/kg (285-295); Potassium 3.4 mmol/L (3.5-5.1); Sodium 141 mmol/L (136-145); Total Bilirubin 0.9 mg/dL (0.15-1.2); Total Protein 7.6 g/dL (6.6-8.7)
[2023-04-09] MEDS: phenazopyridine 100 mg Tablet PO (23:48)
[2023-04-09 23:53] VITALS: BP 111/79; PULSE 72; O2SAT 99
== END 2023-04-09 23:54 | disposition home or self-care (01) ==
PROVIDERS: Emergency Medicine; Emergency Provider Nurse Practitioner; PCP Registered Nurse
DX: N39.0 Urinary tract infection, site not specified (principal); D69.6 Thrombocytopenia, unspecified; Z72.0 Tobacco use
CPT/HCPCS: 80053; 81001; 81025; 85025; 96361; 96374; 96375; 99284; J2405; J3010; J7030

== ENCOUNTER → 2023-09-16 08:25 | Outpatient (BNVA) | payer MEDICAID, SELFPAY | PROVIDERS: PCP Registered Nurse; Visit Provider Nurse Practitioner Women's Health | DX: N92.6 Irregular menstruation, unspecified (principal) | CPT/HCPCS: 84702 ==

== ENCOUNTER → 2023-10-12 09:38 | Outpatient (BNVA) | payer MEDICAID, SELFPAY | PROVIDERS: PCP Registered Nurse; Visit Provider Nurse Practitioner Women's Health | DX: Z34.90 Encounter for supervision of normal pregnancy, unspecified, unspecified trimester (principal) | CPT/HCPCS: 84702 ==

== ENCOUNTER → 2023-10-14 11:34 | Outpatient (BNVA) | payer MEDICAID, SELFPAY | PROVIDERS: PCP Registered Nurse; Visit Provider Nurse Practitioner Women's Health | DX: N92.6 Irregular menstruation, unspecified (principal); Z87.59 Personal history of other complications of pregnancy, childbirth and the puerperium | CPT/HCPCS: 84702 ==

== ENCOUNTER → 2023-10-30 12:14 | Outpatient (BNVA) | payer MEDICAID, SELFPAY | PROVIDERS: PCP Registered Nurse; Visit Provider Emergency Medicine | DX: R50.9 Fever, unspecified (principal) | CPT/HCPCS: 87400 ==

== ENCOUNTER → 2023-11-06 12:02 | Outpatient (BNVA) | payer MEDICAID, SELFPAY | PROVIDERS: PCP Registered Nurse; Visit Provider Emergency Medicine | DX: J02.9 Acute pharyngitis, unspecified (principal) | CPT/HCPCS: 87071; 87880 ==

== ENCOUNTER → 2023-11-08 14:15 | Outpatient (BNVA) | payer MEDICAID, SELFPAY | PROVIDERS: PCP Registered Nurse; Visit Provider Nurse Practitioner Women's Health | DX: Z36.9 Encounter for antenatal screening, unspecified (principal); N83.201 Unspecified ovarian cyst, right side | CPT/HCPCS: 76801 ==

== ENCOUNTER → 2023-11-12 19:02 | Outpatient (BNVA) | payer MEDICAID, SELFPAY | PROVIDERS: PCP Registered Nurse; Visit Provider Emergency Medicine | DX: R39.9 Unspecified symptoms and signs involving the genitourinary system (principal) | CPT/HCPCS: 81000; 87086 ==

== ENCOUNTER → 2023-11-25 08:19 | Outpatient (BNVA) | payer MEDICAID, SELFPAY | PROVIDERS: PCP Registered Nurse; Visit Provider Nurse Practitioner Women's Health | DX: Z34.90 Encounter for supervision of normal pregnancy, unspecified, unspecified trimester (principal) | CPT/HCPCS: 80307; 84315; 84439; 84443; 84481; 85025; 86592; 86762; 86803; 86850; 86900; 87086; 87340; 87491; 87591; 87806 ==

== ENCOUNTER → 2023-11-30 12:47 | Outpatient (BNVA) | payer MEDICAID, SELFPAY | PROVIDERS: PCP Registered Nurse; Visit Provider Nurse Practitioner Family | DX: R39.9 Unspecified symptoms and signs involving the genitourinary system (principal) | CPT/HCPCS: 81000 ==

== ENCOUNTER → 2023-12-07 08:01 | Outpatient (BNVA) | payer MEDICAID, SELFPAY | PROVIDERS: PCP Registered Nurse; Visit Provider Obstetrics & Gynecology | DX: Z34.90 Encounter for supervision of normal pregnancy, unspecified, unspecified trimester (principal) | CPT/HCPCS: 84315 ==

== ENCOUNTER → 2023-12-13 12:21 | Outpatient (BNVA) | payer MEDICAID, SELFPAY | PROVIDERS: PCP Registered Nurse; Visit Provider Nurse Practitioner Women's Health | DX: Z34.90 Encounter for supervision of normal pregnancy, unspecified, unspecified trimester (principal) | CPT/HCPCS: 76801 ==

== ENCOUNTER → 2023-12-17 09:59 | Outpatient (BNVA) | payer BC, MEDICAID, SELFPAY | PROVIDERS: PCP Registered Nurse; Visit Provider Registered Nurse Neonatal Intensive Care | DX: R39.9 Unspecified symptoms and signs involving the genitourinary system (principal) | CPT/HCPCS: 81000 ==

== ENCOUNTER → 2023-12-24 09:35 | Outpatient (BNVA) | payer BC, MEDICAID, SELFPAY | PROVIDERS: PCP Registered Nurse; Visit Provider Obstetrics & Gynecology | DX: Z36.9 Encounter for antenatal screening, unspecified (principal) | CPT/HCPCS: 76801 ==

== ENCOUNTER → 2024-01-05 12:46 | Outpatient (BNVA) | payer BC, MEDICAID, SELFPAY | PROVIDERS: PCP Registered Nurse; Visit Provider Registered Nurse Neonatal Intensive Care | DX: R50.9 Fever, unspecified (principal) | CPT/HCPCS: 87400 ==

== ENCOUNTER → 2024-02-02 09:48 | Outpatient (BNVA) | payer BC, MEDICAID, SELFPAY | PROVIDERS: PCP Registered Nurse; Visit Provider Obstetrics & Gynecology | DX: Z36.9 Encounter for antenatal screening, unspecified (principal) | CPT/HCPCS: 76805 ==

== ENCOUNTER → 2024-02-10 15:44 | Outpatient (BNVA) | payer BC, MEDICAID, SELFPAY | PROVIDERS: PCP Registered Nurse | DX: J02.9 Acute pharyngitis, unspecified (principal) | CPT/HCPCS: 87880 ==

== ENCOUNTER → 2024-04-03 12:35 | Outpatient (BNVA) | payer BC, MEDICAID, SELFPAY | PROVIDERS: PCP Registered Nurse; Visit Provider Nurse Practitioner Women's Health | DX: Z32.01 Encounter for pregnancy test, result positive (principal) | CPT/HCPCS: 82950 ==

== ENCOUNTER → 2024-04-10 12:59 | Outpatient (BNVA) | payer BC, MEDICAID, SELFPAY | PROVIDERS: PCP Registered Nurse; Visit Provider Obstetrics & Gynecology | DX: Z34.90 Encounter for supervision of normal pregnancy, unspecified, unspecified trimester (principal) | CPT/HCPCS: 84315 ==

== ENCOUNTER → 2024-04-18 15:22 | Outpatient (BNVA) | payer BC, MEDICAID, SELFPAY | PROVIDERS: PCP Registered Nurse; Visit Provider Nurse Practitioner | DX: R39.9 Unspecified symptoms and signs involving the genitourinary system (principal); R30.0 Dysuria | CPT/HCPCS: 81000; 87086 ==

== ENCOUNTER → 2024-04-24 15:46 | Outpatient (BNVA) | payer BC, MEDICAID, SELFPAY | PROVIDERS: PCP Registered Nurse; Visit Provider Obstetrics & Gynecology | DX: Z34.90 Encounter for supervision of normal pregnancy, unspecified, unspecified trimester (principal) | CPT/HCPCS: 84315 ==

== ENCOUNTER → 2024-05-08 12:27 | Outpatient (BNVA) | payer BC, MEDICAID, SELFPAY | PROVIDERS: PCP Registered Nurse; Visit Provider Nurse Practitioner Women's Health | DX: Z36.9 Encounter for antenatal screening, unspecified (principal) | CPT/HCPCS: 76816 ==

== ENCOUNTER → 2024-05-19 08:11 | Outpatient (BNVA) | payer BC, MEDICAID, SELFPAY | PROVIDERS: PCP Registered Nurse; Visit Provider Obstetrics & Gynecology | DX: Z34.80 Encounter for supervision of other normal pregnancy, unspecified trimester (principal) | CPT/HCPCS: 84315 ==

== ENCOUNTER → 2024-05-26 09:12 | Outpatient (BNVA) | payer BC, MEDICAID, SELFPAY | PROVIDERS: PCP Registered Nurse; Visit Provider Obstetrics & Gynecology | DX: Z00.00 Encounter for general adult medical examination without abnormal findings (principal) | CPT/HCPCS: 84315; 87081; 87624 ==

== ENCOUNTER → 2024-05-31 15:12 | Outpatient (BNVA) | payer BC, MEDICAID, SELFPAY | PROVIDERS: PCP Registered Nurse; Visit Provider Obstetrics & Gynecology | DX: Z34.90 Encounter for supervision of normal pregnancy, unspecified, unspecified trimester (principal) | CPT/HCPCS: 84315 ==

== ENCOUNTER 2024-06-07 16:20 | Outpatient (CLI) | payer BC, MEDICAID, SELFPAY ==
[2024-06-07 16:20] VITALS: BP 126/80; PULSE 72; O2SAT 98; BMI 22.8
[2024-06-07 16:28] VITALS: BP 134/83; PULSE 82
[2024-06-07 16:44] VITALS: BP 120/78; PULSE 88
[2024-06-07 16:58] VITALS: BP 110/75; PULSE 81
[2024-06-07 17:15] VITALS: BP 126/80; PULSE 76
[2024-06-07 17:53] LABS: Nitrazine Paper, PH Negative
== END 2024-06-07 17:27 | disposition home or self-care (01) ==
LOC: OPOB 16:24 → OBGYN 16:25
PROVIDERS: Obstetrics & Gynecology; PCP Registered Nurse; Visit Provider Obstetrics & Gynecology
DX: O26.899 Other specified pregnancy related conditions, unspecified trimester (principal); Z3A.00 Weeks of gestation of pregnancy not specified; R10.9 Unspecified abdominal pain
CPT/HCPCS: 59025; 83986; 84315; 99211

== ENCOUNTER 2024-06-10 17:03 | Outpatient (CLI) | payer BC, MEDICAID, SELFPAY ==
[2024-06-10] VITALS (8 sets, daily range): BP systolic 111–125; BP diastolic 66–78; PULSE 82–112; RESP 17; BMI 23.1
== END 2024-06-10 19:05 | disposition home or self-care (01) ==
LOC: OPOB 17:04 → OBGYN 17:05
PROVIDERS: PCP Registered Nurse; Visit Provider Obstetrics & Gynecology
DX: O26.899 Other specified pregnancy related conditions, unspecified trimester (principal); Z3A.00 Weeks of gestation of pregnancy not specified; R10.2 Pelvic and perineal pain
CPT/HCPCS: 59025; 99211

== ENCOUNTER → 2024-06-14 15:04 | Outpatient (BNVA) | payer BC, MEDICAID, SELFPAY | PROVIDERS: PCP Registered Nurse; Visit Provider Nurse Practitioner Women's Health | DX: Z34.90 Encounter for supervision of normal pregnancy, unspecified, unspecified trimester (principal) | CPT/HCPCS: 84315 ==

== ENCOUNTER 2024-06-17 15:55 | Outpatient (CLI) | payer BC, MEDICAID, SELFPAY ==
[2024-06-17 16:10] VITALS: BP 119/71; PULSE 99; BMI 22.7
[2024-06-17 16:11] VITALS: RESP 15
[2024-06-17 16:25] VITALS: BP 118/76; PULSE 99
[2024-06-17 16:36] VITALS: BP 118/76; PULSE 99; RESP 15
[2024-06-17 17:07] LABS: Nitrazine Paper, PH Negative
== END 2024-06-17 16:36 | disposition home or self-care (01) ==
LOC: OPOB 15:59 → OBGYN 16:01
PROVIDERS: PCP Registered Nurse; Visit Provider Obstetrics & Gynecology
DX: O26.899 Other specified pregnancy related conditions, unspecified trimester (principal); Z3A.00 Weeks of gestation of pregnancy not specified; N89.8 Other specified noninflammatory disorders of vagina
CPT/HCPCS: 59025; 83986; 99211

== ENCOUNTER 2024-06-19 08:34 | Inpatient (IN) | payer BC, MEDICAID, SELFPAY ==
[2024-06-19] VITALS (14 sets, daily range): BP systolic 111–136; BP diastolic 63–77; PULSE 68–93; RESP 15–16; O2SAT 98–100; BMI 22.7
--- NOTE | 2024-06-19 08:35 | P.HP_ITS ---
Providers/Chief Complaint 2 Admitting Physician: Gio Izquierdo MD Primary ORACLE TECHNICAL DEVELOPER: Gio Izquierdo MD Primary Care Provider: OKSANA Taylor Chief Complaint: IOL HPI ORACLE TECHNICAL DEVELOPER History of Present Illness Emily Schaffer is a 24 year old female SA2 EDC June 20, 2024 At 39 w 6 d No complications Admitted for induction of labor No c/o + movements no bleeding or fluid leakage Present Details : 3 Para: 0 Labs Rubella: Immune RPR: Negative GBS: Negative Medications/Allergies Home Medications ?Medication ?Instructions ?Recorded ?Confirmed ?Last Taken ?Type [id number] 120 mcg-dha 25 1 tab PO DAILY 10/2906/14/24 Unknown History mg-herb no.293 66.7 mg chew tablet (Alive Premium ) Allergies Allergy/AdvReac Type Severity Reaction Status Date / Time clindamycin Allergy ALGY-Swell Verified 06/14/24 15:27 Lip/Tongue/Throat vancomycin Allergy ALGY-Redness Verified 06/14/24 15:27 of Skin PFSH ORACLE TECHNICAL DEVELOPER 2 PFSH: Medical History History of loss, not currently PCOS (polycystic ovarian syndrome) Irregular periods No pertinent family history Bleeding per rectum Hematemesis Gastritis Gastric ulcer Family History Grandmother Breast cancer Grandmother Breast cancer Grandmother Hypertension maternal and paternal grandparents Denies family history of Diabetes Stroke Social History Smoking and tobacco/nicotine status: current some day tobacco/nicotine user Personal Safety: Do you feel safe at home: No Victim of physical abuse: No Victim of emotional abuse: No Victim of sexual abuse: No Would you like help information on resources?: No History History History 2 3 Term 0 0 Miscarriages/Ectopic 2 Living Children 0 Care MI Calculator 2 Estimated Delivery Date Method Current WG Current Estimate 06/20/24 Ultrasound #1 40w 0d Other Estimates 06/14/24 LMP (Uncertain) 40w 6d Specific Issues/Plans * * ABNORMAL CHROMOSOMAL AND GENETIC FINDING ON SCREENING MOTHER: atypical finding on 12/13/23, saw MFM on 02/29/24, cleared per [facility] * AMNIOTIC BAND IN SECOND TRIMESTER: see ultrasound report, seen at [facility] in [place] on 02/29/24, u/s normal, released from [facility] * ANXIETY: doing ok at this time * ACID REFLUX Vitals/I&O/Wt Last Vital Signs Pulse 87 06/20/24 04:44 Resp 16 06/19/24 21:41 BP 102/60 06/20/24 04:44 Pulse Ox 100 06/20/24 01:10 O2 Del Method Room Air 06/19/24 08:07 06/19/24 06/19/24 06/20/24 14:59 22:59 06:59 Intake Total 17.700 / 17.700 1741.283 / 3817.310 2677.8 / 2831.783 Output Total 900 / 900 Balance 17.700 / 17.700 1741.283 / 1758.983 172.8 / 1931.783 Weight last 48 hrs Weight 141 lb Physical Exam 2 Narrative: Weight 141 lbs; 5?5? General comfortable, awake, alert VS normal Lungs: clear Cor: RRR FH 37 cm, cephalic Cervix 2-3 cm / 75% / -2 / cephalic Ext: no edema External monitor: heart tracing good variability, + accelerations Urinary Catheter Management: Samano Latex: Cath Placed During This Visit: yes Urinary Catheter Date of Insertion: 06/20/24 Urinary Catheter Time of Insertion: 00:55 Data 06/19/24 09:00 Results Labs OB ([facility]): 2 Obstetrics US 05/08/24 Blood Type A Positive 06/19/24 Antibody Screen Negative 06/19/24 Hct 33.9 % (36-47) L 06/19/24 Hgb 10.20 g/dL (11.27-16.99) L 06/19/24 Rho(D) Type Rh positive 06/19/24 Plt Count 151 10^3/cmm (157-399) L 06/19/24 Hep Bs Antigen Non-reactive (Nonreactive) 11/25/23 Hepatitis C Antibody Non-reactive (Nonreactive) 11/25/23 Rubella IgG Antibody 10.2 IU/mL (0.0-10.0) H 11/25/23 RPR Nonreactive (Nonreactive) 11/25/23 HIV 1&2 Ab & HIV 1 Ag Non-reactive (Non-Reactiv) 11/25/23 TSH 0.62 uIU/mL (0.27-4.20) 11/25/23 Free T4 1.49 ng/dL (0.82-1.77) 11/25/23 C.trachomatis RNA (TMA) Not detected (NOT DETECTED) N.gonorrhoeae RNA (TMA) Not detected (NOT DETECTED) T. vaginalis Amp RNA Not detected (NOT DETECTED) 11/25/23 Chlamydia/GC Comment See note 11/25/23 Glucose 1 Hr 50 gm 64 mg/dL (85-140) L 04/03/24 Ser , Semi-Qnt 338.70 mIU/mL 10/14/23 HCG, Qual Negative (Negative) 04/09/23 Urine Opiates Screen Negative ng/mL (Negative) 06/19/24 Ur Barbiturates Screen Negative ng/mL (Negative) 06/19/24 Ur Phencyclidine Scrn Negative ng/mL (Negative) 06/19/24 Ur Amphetamines Screen Negative ng/mL (Negative) 06/19/24 U Benzodiazepines Scrn Negative ng/mL (Negative) 06/19/24 Urine Cocaine Screen Negative ng/mL (Negative) 06/19/24 U Marijuana (THC) Screen Positive ng/mL (Negative) H Micro Urine Specimen 04/18/24 Pap Smear Interpret See note 05/26/24 A&P Assessment and plan (1) : 39 w 6 d Fetus reassuring GBS negative Admit for elective induction of labor Plan start Pitocin per protocol Qualifiers: Weeks of gestation: 24 weeks Qualified Code(s): Z3A.24 - 24 weeks gestation of PDMP PDMP Reviewed: Not Reviewed Attestations 2 Medical Necessity Statement*: patient at 39 w 6 d, admitted for induction of labor Coding Level of Care Code Acute Code for Chg Fwd Diagnoses 24 weeks gestation of Z3A.24 Weeks of gestation: 24 weeks Time Spent (min) 60
[2024-06-19] MEDS: dextrose 5%-lactated ringers 1,000 ML 125 ML IV ×2 (09:13→17:22)
[2024-06-19] MEDS: oxytocin 30 UNIT/500 ML BAG IV (09:13)
[2024-06-19 09:21] LABS: Basophils % 0.3 %; Eosinophils # 0.1 10^3/uL (0.0-0.8); Eosinophils % 0.9 %; Hematocrit 33.9 % (36-47); Lymphocytes # 2.3 10^3/uL (0.8-4.8); Lymphocytes % 23.6 %; Mean Corpuscular HGB Conc 30.1 g/dL (30-55); Mean Corpuscular Hemoglobin 24.3 pg (27-33); Mean Corpuscular Volume 80.7 fl (85-98); Mean Platelet Volume 13.2 fL (7.4-10.4); Monocytes # 0.6 10^3/uL (0.2-0.9); Monocytes % 5.9 %; Neutrophils % 68.7 %; Nucleated Red Blood Cells % 0 %; Platelet Count 151 10^3/cmm (157-399); Red Cell Distribution Width 15.4 % (12.1-15.1); White Blood Count 9.76 10^3/uL (3.29-11.43)
[2024-06-19 09:35] LABS: Slide Review Slide Review Perform
--- NOTE | 2024-06-19 18:35 | ANES.PREANE2 ---
Pre-Anesthetic Assessment Height/Weight: Height 1.68 m Weight 63.957 kg O2 Del Method Room Air 06/19/24 08:07 Epidural Familial anesthetic complications: None Was Beta Bridget taken within 24 hours: N/A Was Clonidine taken within 24 hours: N/A Last intake: 744 solid Social Tobacco (Vape) and No alcohol Exam alert, oriented x 3, clear to auscultation bilaterally and regular rate & rhythm Airway Submandibular: within normal limits Cervical ROM: within normal limits Mallampati: Class II Dentition: full History/ROS No significant history except as noted and No significant complaints Pulmonary None reported CV/HEM Anemia Low BP None reported Hepatic Fatty liver GI Gastroesophageal Reflux Disease and Peptic Ulcer Disease Metabolic None reported Musc/skel None reported Neuropsych None reported Anesthetic Plan ASA status: 2 Anesthesia: Anesthesia Evaluation, General and Regional (specify below) (Epidural) Risk of > 500 ml blood loss (7ml/kg in children): Yes, adequate IV access and fluids planned Medications/Allergies Home Medications ?Medication ?Instructions ?Recorded ?Confirmed ?Last Taken ?Type [id number] 120 mcg-dha 25 1 tab PO DAILY 10/30/23 06/14/24 Unknown History mg-herb no.293 66.7 mg chew tablet (Alive Premium ) Allergies Allergy/AdvReac Type Severity Reaction Status Date / Time clindamycin Allergy ALGY-Swell Verified 06/14/24 15:27 Lip/Tongue/Throat vancomycin Allergy ALGY-Redness Verified 06/14/24 15:27 of Skin Current Medications Generic Name Dose Route Start Last Admin Trade Name Freq PRN Reason Stop Dose Admin Dextrose/Lactated Ringer's 1,000 mls @ 125 mls/hr 06/19/24 08:15 06/19/24 17:22 Dextrose 5%-Lactated Ringers IV 125 mls/hr .Q8H UDAY Administration Oxytocin 30 unit in 500 mls @ 1 mls/hr 06/19/24 09:00 06/19/24 09:59 Pitocin IV 2 milliunit/min .Q24H UDAY 2 mls/hr Titration Protocol 1 MILLIUNIT/MIN PFSH Anesthesia Medical History History of loss, not currently PCOS (polycystic ovarian syndrome) Irregular periods No pertinent family history Bleeding per rectum Hematemesis Gastritis Gastric ulcer Family History Grandmother Breast cancer Grandmother Breast cancer Grandmother Hypertension maternal and paternal grandparents Denies family history of Diabetes Stroke Social History Smoking and tobacco/nicotine status: current some day tobacco/nicotine user Female Reproductive History : 3 Data Anesthesia 06/19/24 09:00 Short CBC 06/19/24 Range/Units 09:00 WBC 9.76 (3.29-11.43) 10^3/uL Hgb 10.20 L (11.27-16.99) g/dL Hct 33.9 L (36-47) % MCV 80.7 L (85-98) fl Plt Count 151 L (157-399) 10^3/cmm Neut % (Auto) 68.7 % Neut # (Auto) 6.70 (1.8-7.7) 10^3/uL Blood Bank 06/19/24 09:00 Blood Type A Positive Rho(D) Type Rh positive Antibody Screen Negative Cardiac Studies: No Data to Display
[2024-06-19] MEDS: fentaNYL 50 mcg/mL INJ 2mL IVP ×2 (19:26→21:41)
[2024-06-19] MEDS: sodium chloride 0.9% 1,000 ML 999 ML IV ×2 (22:55→23:51)
[2024-06-19 23:30] LABS: Amphetamines Screen Urine Negative (Negative); Barbiturates Screen Urine Negative (Negative); Benzodiazepines Screen Urine Negative (Negative); Cocaine Screen Urine Negative (Negative); Opiate Screen Urine Negative (Negative); PCP Screen Urine Negative (Negative); THC Screen Urine Positive (Negative)
[2024-06-20] VITALS (39 sets, daily range): BP systolic 100–149; BP diastolic 57–83; PULSE 58–91; RESP 15–16; TEMP 36.4–37; O2SAT 96–100
[2024-06-20] MEDS: ROPivacaine syringe 100 MG/50 ML SYRINGE 13 MG EPIDURAL (00:07)
--- NOTE | 2024-06-20 00:12 | ANES.PROC ---
Anesthesia Procedures Procedure/Date: 06/20/24 Epidural: Time Out Performed: Yes Consents Signed: Procedure Consent and NPO Consent Consent: requested by attending/covering physician, from patient, risks and benefits reviewed and patient agrees to proceed Lumbar Level: L2-L3 Epidural position: sitting Epidural procedure: sterile prep of area (betadine), 1% lidocaine to numb the area (3 mLs), neg for paresthesia, test dose given, 1.5% xylocaine 1:200k epi (3 mLs/ 2 mLs), 0.2% Ropivacaine bolus ml (5 mLs), placed PCEA, no systemic response, sterile dressing applied, L.U.D. no apparent complications and 0.2% Ropiavacaine @ mls/hr (13) Additional Comments: Attempt 1 KAT 4cm, catheter threaded to 10cm at L3-4. Blood noticed in catheter, positive test dose. Patients back was re-prepped and draped, new epidural kit used. Attempt 2 at L2-3 KAT at 4cm, catheter threaded to 10cm. Negative for blood and CSF on aspiration. Negative test dose. Patient states improvement in contraction pain.
--- NOTE | 2024-06-20 01:50 | PM.DELIVERY ---
Delivery Note: Date of delivery: June 20, 2024 Pre-delivery diagnoses: 39 w 6 d admitted for induction of labor Post-delivery diagnoses: 39 w 6 d admitted for induction of labor vaginal delivery repair of second-degree perineal laceration Procedure: induction of labor vaginal delivery repair of second-degree perineal laceration Op report anesthesia: Epidural Delivering Physician: Gio Izquierdo MD Estimated blood loss (mL): 300 Findings: , vigorous Cord gases obtained Normal placenta and cord Second-degree perineal laceration repaired in layers EBL: 300 cc No complications Pre-Delivery Course: normal labor course Delivery: vaginal Post-Delivery Status: good History History History 3 Term 0 0 Miscarriages/Ectopic 2 Living Children 0 A&P Assessment and plan (1) Vaginal delivery: PDMP PDMP Reviewed: Not Reviewed Coding Level of Care Code Acute Code for Chg Fwd Diagnoses Vaginal delivery O80 Time Spent (min) 60
[2024-06-20] MEDS: HYDROcodone-acetaminophen 5-325 mg Tablet PO ×2 (06:52→21:37)
[2024-06-20] MEDS: docusate sodium 100 mg Capsule PO ×2 (09:45→20:51)
[2024-06-20] MEDS: PRENATAL VIT NO.130/IRON/FOLIC 1 EACH TABLET PO (09:45)
[2024-06-20] MEDS: ibuprofen 800 mg tablet PO ×3 (09:45→20:52)
[2024-06-20 16:14] LABS: Hematocrit 34.1 % (36-47); Mean Corpuscular HGB Conc 30.2 g/dL (30-55); Mean Corpuscular Hemoglobin 24.3 pg (27-33); Mean Corpuscular Volume 80.6 fl (85-98); Mean Platelet Volume 12.6 fL (7.4-10.4); Platelet Count 149 10^3/cmm (157-399); Red Blood Count 4.23 10^6/uL (3.85-5.65); Red Cell Distribution Width 15.5 % (12.1-15.1); White Blood Count 13.24 10^3/uL (3.29-11.43)
[2024-06-21 04:20] VITALS: BP 114/78; PULSE 72; RESP 16; TEMP 36.6; TEMP 36.7; O2SAT 97
[2024-06-21] MEDS: HYDROcodone-acetaminophen 5-325 mg Tablet PO (04:24)
--- NOTE | 2024-06-21 08:00 | ANE.PACU2 ---
Inpatient post-anesthesia follow up: Airway intact: Yes Vital signs: Temperature 97.9 F Pulse Rate 88 Respiratory Rate 16 Blood Pressure 98/79 Pulse Oximetry 98 Oxygen Delivery Me thod Room Air Oxygen Flow Rate Fraction of Inspir ed Oxygen Hydration adequate: Yes Nausea and vomiting: No Pain level: 1 Mental status: Baseline Epidural Start/End: Epidural Start Date: 06/19/24 Epidural Start Time: 23:30 Epidural End Date: 06/20/24 Epidural End Time: 04:00
[2024-06-21 09:16] VITALS: BP 101/76; PULSE 78; TEMP 37.1
--- NOTE | 2024-06-21 11:50 | PM.OBGYDC ---
Discharge Providers IMAGE EDITOR Date of Admission: 06/19/24 08:34 Date of Discharge: 06/21/24 Attending Provider at Admission: Gio Izquierdo MD Attending Provider at Discharge: Gio Izquierdo MD Consults: none Primary IMAGE EDITOR: Gio Izquierdo MD Primary Care Provider: OKSANA Taylor Diagnoses at Discharge Discharge Diagnosis (1) Vaginal delivery: Details from hospital stay: 23 y.o. SA2 at 39 w 6 d no complications admitted for induction of labor patient was given pitocin patient progressed to complete dilatation fetus was reassuring throughout She delivered vaginally a vigorous without any complications had repair of second-degree perineal laceration patient did well and was discharged to home on the first day Status: Inactive Reason for Visit Reason for Visit: IOL Brief History: 23 y.o. SA2 at 39 w 6 d no complications admitted for induction of labor Hospital Course Hospital Course 23 y.o. SA2 at 39 w 6 d no complications admitted for induction of labor patient was given pitocin patient progressed to complete dilatation fetus was reassuring throughout She delivered vaginally a vigorous without any complications had repair of second-degree perineal laceration patient did well and was discharged to home on the first day Information Peripartum Data: Delivery Method: Vaginal Laceration description: Perineal - 2nd Degree Episiotomy description: None complications: none Physical Exam Narrative: general comfortable, awake, alert VS normal. Afebrile Lungs: clear Cor: RRR Abd: soft, nontender Ext: no edema Urinary Catheter Management: Samano Latex: Cath Placed During This Visit: yes, but has since been removed by the nurse Reason for Continuing Indwelling Catheter: Decision to DC Catheter Urinary Catheter Date of Insertion: 06/20/24 Urinary Catheter Time of Insertion: 00:55 Date Urinary Catheter Removed: 06/20/24 Time Urinary Catheter Discontinued: 01:12 History History History 3 Term 0 0 Miscarriages/Ectopic 2 Living Children 0 Discharge Data Studies Completed and Pending Laboratory Results WBC 13.24 10^3/uL (3.29-11.43) H 06/20/24 15:47 RBC 4.23 10^6/uL (3.85-5.65) 06/20/24 15:47 Hgb 10.30 g/dL (11.27-16.99) L 06/20/24 15:47 Hct 34.1 % (36-47) L 06/20/24 15:47 MCV 80.6 fl (85-98) L 06/20/24 15:47 MCH 24.3 pg (27-33) L 06/20/24 15:47 MCHC 30.2 g/dL (30-55) 06/20/24 15:47 RDW 15.5 % (12.1-15.1) H 06/20/24 15:47 Plt Count 149 10^3/cmm (157-399) L 06/20/24 15:47 MPV 12.6 fL (7.4-10.4) H 06/20/24 15:47 Neut % (Auto) 68.7 % 06/19/24 09:00 Lymph % (Auto) 23.6 % 06/19/24 09:00 [place] % (Auto) 5.9 % 06/19/24 09:00 Eos % (Auto) 0.9 % 06/19/24 09:00 Baso % (Auto) 0.3 % 06/19/24 09:00 Neut # (Auto) 6.70 10^3/uL (1.8-7.7) 06/19/24 09:00 Lymph # (Auto) 2.3 10^3/uL (0.8-4.8) 06/19/24 09:00 [place] # (Auto) 0.6 10^3/uL (0.2-0.9) 06/19/24 09:00 Eos # (Auto) 0.1 10^3/uL (0.0-0.8) 06/19/24 09:00 Baso # (Auto) 0.0 10^3/uL (0.0-0.1) 06/19/24 09:00 Nucleated RBC % (auto) 0 % 06/19/24 09:00 Nucleated RBCs # 0.0 /100WBC 06/19/24 09:00 Urine Opiates Screen Negative ng/mL (Negative) 06/19/24 23:00 Ur Barbiturates Screen Negative ng/mL (Negative) 06/19/24 23:00 Ur Phencyclidine Scrn Negative ng/mL (Negative) 06/19/24 23:00 Ur Amphetamines Screen Negative ng/mL (Negative) 06/19/24 23:00 U Benzodiazepines Scrn Negative ng/mL (Negative) 06/19/24 23:00 Urine Cocaine Screen Negative ng/mL (Negative) 06/19/24 23:00 U Marijuana (THC) Screen Positive ng/mL (Negative) H 06/19/24 23:00 Blood Type A Positive 06/19/24 09:00 Rho(D) Type Rh positive 06/19/24 09:00 Antibody Screen Negative 06/19/24 09:00 Procedures Performed induction of labor vaginal delivery repair of second-degree perineal laceration Vitals Last Vital Signs Temp 97.9 F 06/21/24 13:00 Pulse 88 06/21/24 13:16 Resp 16 06/21/24 04:20 BP 98/79 06/21/24 13:16 Pulse Ox 98 06/21/24 13:16 O2 Del Method Room Air 06/21/24 13:00 Results Labs OB ([facility] Obstetrics US 05/08/24 Blood Type A Positive 06/19/24 Antibody Screen Negative 06/19/24 Hct, (36-47) 34.1 % L 06/20/24 Hgb, (11.27-16.99) 10.30 g/dL L 06/20/24 Rho(D) Type Rh positive 06/19/24 Plt Count, (157-399) 149 10^3/cmm L 06/20/24 Hep Bs Antigen, (Nonreactive) Non-reactive 11/25/23 Hepatitis C Antibody, (Nonreactive) Non-reactive 11/25/23 Rubella IgG Antibody, (0.0-10.0) 10.2 IU/mL H 11/25/23 RPR, (Nonreactive) Nonreactive 11/25/23 HIV 1&2 Ab & HIV 1 Ag, (Non-Reactiv) Non-reactive 11/25/23 TSH, (0.27-4.20) 0.62 uIU/mL 11/25/23 Free T4, (0.82-1.77) 1.49 ng/dL 11/25/23 C.trachomatis RNA (TMA), (NOT DETECTED) Not detected 11/25/23 N.gonorrhoeae RNA (TMA), (NOT DETECTED) Not detected 11/25/23 T. vaginalis Amp RNA, (NOT DETECTED) Not detected 11/25/23 Chlamydia/GC Comment See note 11/25/23 Glucose 1 Hr 50 gm, (85-140) 64 mg/dL L 04/03/24 Ser , Semi-Qnt 338.70 mIU/mL 10/14/23 HCG, Qual, (Negative) Negative 04/09/23 Urine Opiates Screen, (Negative) Negative ng/mL 06/19/24 Ur Barbiturates Screen, (Negative) Negative ng/mL 06/19/24 Ur Phencyclidine Scrn, (Negative) Negative ng/mL 06/19/24 Ur Amphetamines Screen, (Negative) Negative ng/mL 06/19/24 U Benzodiazepines Scrn, (Negative) Negative ng/mL 06/19/24 Urine Cocaine Screen, (Negative) Negative ng/mL 06/19/24 U Marijuana (THC) Screen, (Negative) Positive ng/mL H 06/19/24 Micro Urine Specimen 04/18/24 Pap Smear Interpret See note 05/26/24 Discharge Plan Discharge Patient Disposition: Home Condition: Stable Prescriptions: Continued Alive Premium 120 mcg-25 mg- 66.7 mg tablet,chewable 1 tab PO DAILY Discharge Orders: Discharge Order (Routine); Ordered 06/21/24 Ordered By: Gio Izquierdo Referrals: Tammi Day NP [Nurse Practitioner, IMAGE EDITOR] - 07/31/24 8:45 am Discharge Diet: Usual diet Discharge Activity: Increase activity as tolerated Patient Instructions: Depression (DC), Opioid Safety (DC), Preeclampsia and Eclampsia After Delivery (GEN), Hemorrhage (DC), OB Discharge Report, OB Food/Drug Interaction Guide, Opioid Safety, OB Home Care, OB Vaginal Deliveries - [facility], Abnormal Bleeding Discharge Attestations IMAGE EDITOR Time Spent in Discharge Care*: less than 30 min Coding Level of Care Code Acute Code for Chg Fwd Diagnoses Vaginal delivery O80
[2024-06-21 13:00] VITALS: BP 98/76; PULSE 81; TEMP 36.6
[2024-06-21 13:16] VITALS: BP 98/79; PULSE 88; O2SAT 98
== END 2024-06-21 13:16 | disposition home or self-care (01) | DRG 807 ==
LOC: OPOB 08:34 → OBGYN 08:34
PROVIDERS: Admitting Provider Obstetrics & Gynecology; PCP Registered Nurse; Visit Provider Obstetrics & Gynecology
DX: O70.1 Second degree perineal laceration during delivery (principal); Z37.0 Single live birth; O99.284 Endocrine, nutritional and metabolic diseases complicating childbirth; E28.2 Polycystic ovarian syndrome; O99.334 Smoking (tobacco) complicating childbirth; F17.290 Nicotine dependence, other tobacco product, uncomplicated; O99.344 Other mental disorders complicating childbirth; Z3A.39 39 weeks gestation of pregnancy; O75.89 Other specified complications of labor and delivery; K21.9 Gastro-esophageal reflux disease without esophagitis
CPT/HCPCS: 36415; 51702; 59025; 59409; 80306; 85025; 85027; 86850; 86900; J2590; J2795; J3010; J7030; J7121; J9999

== ENCOUNTER → 2024-10-30 16:17 | Outpatient (BNVA) | payer BC, MEDICAID, SELFPAY | PROVIDERS: PCP Registered Nurse; Visit Provider Nurse Practitioner | DX: J02.9 Acute pharyngitis, unspecified (principal) | CPT/HCPCS: 87880 ==

== ENCOUNTER → 2024-12-13 13:16 | Outpatient (BNVA) | payer BC, MEDICAID, SELFPAY | PROVIDERS: PCP Registered Nurse | DX: J02.9 Acute pharyngitis, unspecified (principal) | CPT/HCPCS: 87071; 87880 ==